=== PATIENT | female | born 1945 | race Caucasian/White ===

== ENCOUNTER → 2016-05-28 | Outpatient (CLI) | payer MEDICARE, OTHER ==
[~2016-05-28] MED LIST: ALPR0.25 GT; CEPH-37 PO; PROP60CA8 PO; TRAM50TA2 PO
[2016-05-28 10:54] LABS: Urine RBC None Seen /hpf (0 - 4)
[2016-05-28 11:14] LABS: Urine Bilirubin Negative (Negative); Urine Blood Negative /uL (Negative); Urine Color Yellow (Yellow); Urine Glucose Normal (Normal); Urine Hyaline Cast FEW /lpf (0 - 2); Urine Ketone Negative (Negative); Urine Nitrite Negative (Negative); Urine Squamous Epithelial Cell FEW /hpf (<5); Urine Urobilinogen Normal (Negative)
[2016-05-28 11:37] LABS: Albumin 3.8 g/dL (3.4-5.0); BUN/Creatinine Ratio 25.3; Bilirubin, Total 0.6 mg/dL (0.2-1.0); Calcium 10.5 mg/dL (8.5-10.1); Potassium 4.9 mmol/L (3.5-5.1); Total Protein 7.6 g/dL (6.4-8.2)
[2016-05-28 11:44] LABS: Basophils # (auto) 0 uL; Basophils % (auto) 0.6 % (0.0-2.0); Eosinophils # (auto) 0.2 uL; Eosinophils % (auto) 2.3 % (0.0-7.0); Hematocrit 44.6 % (36.0-46.0); Hemoglobin 14.6 g/dL (12.2-16.2); Lymphocytes # (auto) 1.8 uL; Lymphocytes % (auto) 21.4 % (10.0-50.0); Mean Corpuscular Hemoglobin 29.4 pg (28.0-32.0); Mean Corpuscular Hgb Conc. 32.9 g/dL (32.0-36.0); Mean Corpuscular Volume 89.4 fL (80.0-100.0); Mean Platelet Volume 8.9 fL (7.4-10.4); Monocytes # (auto) 0.8 uL; Monocytes % (auto) 9.3 % (0.0-12.0); Neutrophils # (auto) 5.7 uL; Neutrophils % (auto) 66.4 % (37.0-80.0); Platelet Count (auto) 294 10^3/uL (140-450); Red Cell Distribution Width 13.2 % (11.6-16.0); White Blood Cell 8.6 10^3/uL (4.4-10.8)
== END | disposition home or self-care (01) ==
LOC: LAB 09:35
PROVIDERS: ATTEND Family Medicine
DX: Z00.00 Encounter for general adult medical examination without abnormal findings (principal)
CPT/HCPCS: 36415; 80053; 80061; 81001; 82306; 82607; 84443; 85025

== ENCOUNTER → 2017-05-10 | Outpatient (CLI) | payer OTHER ==
[~2017-05-10] MED LIST changes: +ALEN70TA55 PO; +ALPR0.254 PO; +ALPR0.5T PO; +ALPR0.5T7 PO; +ARIP1TAB7 PO; +ESCI20TA51 PO; +IBUP400T21 PO
== END | disposition home or self-care (01) ==
LOC: US 09:29
PROVIDERS: ATTEND Family Medicine
DX: N63.0 Unspecified lump in unspecified breast (principal); Z88.5 Allergy status to narcotic agent; F41.9 Anxiety disorder, unspecified
CPT/HCPCS: 76642; 76942; 88341; 88360; 88361

== ENCOUNTER → 2017-05-20 | Outpatient (CLI) | payer MEDICARE, OTHER ==
[2017-05-20 11:24] LABS: Basophils # (auto) 0 uL; Basophils % (auto) 0.7 % (0.0-2.0); Eosinophils # (auto) 0.2 uL; Eosinophils % (auto) 3.7 % (0.0-7.0); Hematocrit 41.1 % (36.0-46.0); Hemoglobin 13.5 g/dL (12.2-16.2); Lymphocytes # (auto) 1.5 uL; Lymphocytes % (auto) 24.3 % (10.0-50.0); Mean Corpuscular Hemoglobin 29.9 pg (28.0-32.0); Mean Corpuscular Hgb Conc. 32.9 g/dL (32.0-36.0); Mean Corpuscular Volume 90.7 fL (80.0-100.0); Monocytes # (auto) 0.7 uL; Monocytes % (auto) 11.5 % (0.0-12.0); Neutrophils # (auto) 3.6 uL; Neutrophils % (auto) 59.8 % (37.0-80.0); Platelet Count (auto) 252 10^3/uL (140-450); Red Blood Cells 4.53 10^6/uL (4.0-5.20); Red Cell Distribution Width 13.2 % (11.8-14.3)
[2017-05-20 11:30] LABS: Urine Bacteria NONE SEEN /hpf (None Seen); Urine Blood Negative /uL (Negative); Urine Mucus FEW (None Seen); Urine Specific Gravity 1.009 (1.001-1.035); Urine WBC 2 /hpf (0 - 5)
[2017-05-20 13:14] LABS: Albumin 3.5 g/dL (3.4-5.0); BUN/Creatinine Ratio 35.1; Bilirubin, Total 0.5 mg/dL (0.2-1.0); Calcium 9.7 mg/dL (8.5-10.1); Potassium 4.7 mmol/L (3.5-5.1); Total Protein 7.1 g/dL (6.4-8.2)
== END | disposition home or self-care (01) ==
LOC: LAB 10:32
PROVIDERS: ATTEND Family Medicine
DX: I10 Essential (primary) hypertension (principal); M81.0 Age-related osteoporosis without current pathological fracture; J44.9 Chronic obstructive pulmonary disease, unspecified; F32.9 Major depressive disorder, single episode, unspecified
CPT/HCPCS: 36415; 80053; 80061; 81001; 82306; 84443; 85025

== ENCOUNTER 2017-06-19 06:04 | Inpatient (IN) | payer OTHER ==
[2017-06-18 16:31] LABS: Basophils # (auto) 0 uL; Basophils % (auto) 0.8 % (0.0-2.0); Eosinophils # (auto) 0.3 uL; Eosinophils % (auto) 5.2 % (0.0-7.0); Hematocrit 41.3 % (36.0-46.0); Hemoglobin 13.8 g/dL (12.2-16.2); Lymphocytes # (auto) 1.7 uL; Lymphocytes % (auto) 28.9 % (10.0-50.0); Mean Corpuscular Hgb Conc. 33.4 g/dL (32.0-36.0); Mean Corpuscular Volume 89.9 fL (80.0-100.0); Monocytes # (auto) 0.8 uL; Monocytes % (auto) 12.7 % (0.0-12.0); Neutrophils # (auto) 3.1 uL; Neutrophils % (auto) 52.4 % (37.0-80.0); Nucleated Red Blood Cells % 0.1 %; Platelet Count (auto) 275 10^3/uL (140-450); Red Cell Distribution Width 13.5 % (11.8-14.3); White Blood Cell 5.9 10^3/uL (4.4-10.8)
[2017-06-18 16:49] LABS: Potassium 4.7 mmol/L (3.5-5.1)
[2017-06-18 16:50] LABS: Albumin 3.7 g/dL (3.4-5.0); BUN/Creatinine Ratio 28.4; Bilirubin, Total 0.4 mg/dL (0.2-1.0); Calcium 10.2 mg/dL (8.5-10.1); Total Protein 7.2 g/dL (6.4-8.2)
[2017-06-18 17:05] LABS: INR 0.98 (0.9-1.15); Partial Thromboplastin Time 32.6 sec (22.64-33.71); Prothrombin Time 10.7 sec (9.37-12.3)
[~2017-06-19] VITALS: Ht 154.9 cm; Wt 58.5 kg
[~2017-06-19 06:04] MED LIST changes: -ALPR0.25 GT; -ALPR0.254 PO; -ALPR0.5T7 PO; -CEPH-37 PO
[2017-06-19] MEDS ORDERED: ceFAZolin 1GM/50ML 50 ML IV ONE (06:41)
[2017-06-19] MEDS ORDERED: SUCCINYLCHOLINE CHLORIDE 20 MG/ML 10ML VIAL IV ONE (07:51)
[2017-06-19] MEDS ORDERED: LIDOCAINE 1% HCL (LOCAL ANESTH.) INJ 20ML MDV ONE (07:51)
[2017-06-19] MEDS ORDERED: MIDAZOLAM HCL 1MG/1ML-2 ML VIAL ONE (07:52)
[2017-06-19] MEDS ORDERED: ROCURONIUM 10MG/ML 10ML VIAL IV ONE ×2 (07:54→07:58)
[2017-06-19] MEDS ORDERED: ETOMIDATE (2MG/ML) 20ML VIAL IV ONE ×2 (07:54→07:58)
[2017-06-19] MEDS ORDERED: LIDOCAINE HCL 2% TOP JELLY 5ML TOP ONE (08:30)
[2017-06-19] MEDS ORDERED: fentaNYL CITRATE 100 MCG/2 ML VL ONE (08:58)
[2017-06-19] MEDS ORDERED: STERILE WATER 10 ML ONE (09:32)
[2017-06-19] MEDS ORDERED: ePHEDrine SULFATE 50 MG/ML AMP ONE (09:32)
[2017-06-19] MEDS ORDERED: GLYCOPYRROLATE 0.2 MG/ML 1ML VIAL ONE (09:45)
[2017-06-19] MEDS ORDERED: ALBUTEROL SULF 2.5 MG/0.5ML(0.5%) NEB SOLN NEB PRN (09:45)
[2017-06-19] MEDS ORDERED: NEOSTIGMINE 1 MG/ML INJ (10mg/10ML VIAL) ONE (09:45)
[2017-06-19] MEDS ORDERED: MORPHINE SULFATE 4 MG/ML SYR/VIAL IV PRN ×3 (09:45→14:15)
[2017-06-19] MEDS ORDERED: ONDANSETRON HCL 4 MG/2 ML VIAL IV ONE (09:45)
[2017-06-19] MEDS ORDERED: NALOXONE HCL 0.4 MG/ML VIAL IV PRN (09:45)
[2017-06-19] MEDS ORDERED: NITROGLYCERIN 0.4 MG SL TAB SL PRN (11:45)
[2017-06-19] MEDS ORDERED: ALPR0.254 PO (12:59)
[2017-06-19] MEDS ORDERED: ALPR0.5T7 PO (12:59)
[2017-06-19 13:47] VITALS: BP 91/47
[2017-06-19] MEDS ORDERED: HYDROcodone-ACET 5/325MG TAB PO PRN (14:15)
[2017-06-19] MEDS ORDERED: ONDANSETRON HCL 4 MG/2 ML VIAL IV PRN (14:15)
[2017-06-19] MEDS ORDERED: ALPRAZolam 0.25 MG TAB PO PRN (14:15)
[2017-06-19 16:57] VITALS: BP 96/56
[2017-06-19 21:41] VITALS: BP 103/55
[2017-06-20 05:31] VITALS: BP 99/62
[2017-06-20 06:51] LABS: Basophils # (auto) 0 uL; Basophils % (auto) 0.5 % (0.0-2.0); Eosinophils # (auto) 0 uL; Eosinophils % (auto) 0.4 % (0.0-7.0); Hematocrit 36.7 % (36.0-46.0); Hemoglobin 12.2 g/dL (12.2-16.2); Lymphocytes # (auto) 1.5 uL; Lymphocytes % (auto) 17.5 % (10.0-50.0); Mean Corpuscular Hemoglobin 29.9 pg (28.0-32.0); Mean Corpuscular Hgb Conc. 33.3 g/dL (32.0-36.0); Mean Corpuscular Volume 89.7 fL (80.0-100.0); Monocytes # (auto) 1.1 uL; Monocytes % (auto) 13.4 % (0.0-12.0); Neutrophils # (auto) 5.7 uL; Neutrophils % (auto) 68.2 % (37.0-80.0); Platelet Count (auto) 264 10^3/uL (140-450); Red Blood Cells 4.09 10^6/uL (4.0-5.20); White Blood Cell 8.3 10^3/uL (4.4-10.8)
[2017-06-20 07:17] LABS: BUN/Creatinine Ratio 28.2; Calcium 9.7 mg/dL (8.5-10.1); Potassium 4.1 mmol/L (3.5-5.1)
[2017-06-20 08:00] VITALS: BP 113/61
[2017-06-20] MEDS ORDERED: CITALOPRAM HYDROBR 20 MG TAB PO SCH (10:00)
[2017-06-20] MEDS ORDERED: GABAPENTIN 300 MG CAP PO SCH (10:00)
[2017-06-20 12:00] VITALS: BP 121/70
== END 2017-06-20 15:00 | disposition home or self-care (01) | DRG 581 ==
LOC: SUR 06:04 → TELE-EAST 06:05
PROVIDERS: ADMIT Surgery; ATTEND Internal Medicine
PROC: 07B50ZZ Excision of Right Axillary Lymphatic, Open Approach (ICD-10-PCS; 2017-06-19)
PROC: 0HTT0ZZ Resection of Right Breast, Open Approach (ICD-10-PCS; principal; 2017-06-19 08:26)
DX: C50.911 Malignant neoplasm of unspecified site of right female breast (principal); J44.9 Chronic obstructive pulmonary disease, unspecified; F20.9 Schizophrenia, unspecified; I50.9 Heart failure, unspecified; I11.0 Hypertensive heart disease with heart failure; F41.9 Anxiety disorder, unspecified; F32.9 Major depressive disorder, single episode, unspecified; M16.11 Unilateral primary osteoarthritis, right hip; M81.0 Age-related osteoporosis without current pathological fracture; I25.2 Old myocardial infarction; Z88.5 Allergy status to narcotic agent
CPT/HCPCS: 36415; 80048; 80053; 85025; 85610; 85730; J0330; J0690; J2001; J2250

== ENCOUNTER → 2017-08-30 | Outpatient (CLI) | payer OTHER ==
[~2017-08-30] MED LIST changes: +ALPR0.254 PO; -ALPR0.5T PO; +ALPR0.5T7 PO
[2017-08-30 11:42] LABS: Basophils # (auto) 0 uL; Basophils % (auto) 0.8 % (0.0-2.0); Eosinophils # (auto) 0.2 uL; Eosinophils % (auto) 4.4 % (0.0-7.0); Hemoglobin 13.8 g/dL (12.2-16.2); Lymphocytes # (auto) 1.9 uL; Lymphocytes % (auto) 33.9 % (10.0-50.0); Mean Corpuscular Hemoglobin 29.1 pg (28.0-32.0); Mean Corpuscular Hgb Conc. 32.2 g/dL (32.0-36.0); Mean Corpuscular Volume 90.4 fL (80.0-100.0); Monocytes # (auto) 0.7 uL; Monocytes % (auto) 12.7 % (0.0-12.0); Neutrophils # (auto) 2.7 uL; Neutrophils % (auto) 48.2 % (37.0-80.0); Nucleated Red Blood Cells % 0.1 %; Platelet Count (auto) 242 10^3/uL (140-450); Red Blood Cells 4.76 10^6/uL (4.0-5.20); Red Cell Distribution Width 13.4 % (11.8-14.3); White Blood Cell 5.5 10^3/uL (4.4-10.8)
[2017-08-30 12:24] LABS: Albumin 3.8 g/dL (3.4-5.0); BUN/Creatinine Ratio 23.6; Bilirubin, Total 0.5 mg/dL (0.2-1.0); Potassium 4.4 mmol/L (3.5-5.1); Total Protein 7.6 g/dL (6.4-8.2)
== END | disposition home or self-care (01) ==
LOC: LAB 11:08
PROVIDERS: ATTEND Internal Medicine
DX: C50.819 Malignant neoplasm of overlapping sites of unspecified female breast (principal); J44.9 Chronic obstructive pulmonary disease, unspecified; I11.0 Hypertensive heart disease with heart failure; I50.9 Heart failure, unspecified
CPT/HCPCS: 36415; 80053; 83615; 85025

== ENCOUNTER → 2017-11-06 | Outpatient (CLI) | payer OTHER ==
[~2017-11-06] MED LIST changes: +PROP60CA34 PO; -PROP60CA8 PO
[2017-11-06 14:44] LABS: Basophils # (auto) 0 uL; Basophils % (auto) 0.5 % (0.0-2.0); Eosinophils # (auto) 0.2 uL; Eosinophils % (auto) 3.2 % (0.0-7.0); Hematocrit 40.5 % (36.0-46.0); Hemoglobin 13.5 g/dL (12.2-16.2); Lymphocytes # (auto) 1.8 uL; Lymphocytes % (auto) 28.8 % (10.0-50.0); Mean Corpuscular Hemoglobin 29.4 pg (28.0-32.0); Mean Corpuscular Hgb Conc. 33.4 g/dL (32.0-36.0); Mean Corpuscular Volume 87.8 fL (80.0-100.0); Monocytes # (auto) 0.7 uL; Monocytes % (auto) 11.5 % (0.0-12.0); Neutrophils # (auto) 3.5 uL; Nucleated Red Blood Cells % 0.1 %; Platelet Count (auto) 233 10^3/uL (140-450); Red Blood Cells 4.61 10^6/uL (4.0-5.20); Red Cell Distribution Width 14.1 % (11.8-14.3); White Blood Cell 6.2 10^3/uL (4.4-10.8)
[2017-11-06 15:33] LABS: Albumin 3.4 g/dL (3.4-5.0); BUN/Creatinine Ratio 25.9; Bilirubin, Total 0.4 mg/dL (0.2-1.0); Calcium 9.7 mg/dL (8.5-10.1); Potassium 3.9 mmol/L (3.5-5.1); Total Protein 6.9 g/dL (6.4-8.2)
== END | disposition home or self-care (01) ==
LOC: LAB 14:29
PROVIDERS: ATTEND Internal Medicine
DX: C50.811 Malignant neoplasm of overlapping sites of right female breast (principal); J44.9 Chronic obstructive pulmonary disease, unspecified; I11.0 Hypertensive heart disease with heart failure; I50.9 Heart failure, unspecified
CPT/HCPCS: 36415; 80053; 83615; 85025

== ENCOUNTER → 2018-02-13 | Outpatient (CLI) | payer OTHER, MEDICARE ==
[~2018-02-13] MED LIST changes: +ALEN1TAB32 PO; -ALEN70TA55 PO
[2018-02-13 15:55] LABS: Basophils # (auto) 0 uL; Basophils % (auto) 0.7 % (0.0-2.0); Eosinophils # (auto) 0.2 uL; Eosinophils % (auto) 4.3 % (0.0-7.0); Hematocrit 44.7 % (36.0-46.0); Hemoglobin 14.6 g/dL (12.2-16.2); Lymphocytes # (auto) 1.9 uL; Lymphocytes % (auto) 35.6 % (10.0-50.0); Mean Corpuscular Hemoglobin 30.1 pg (28.0-32.0); Mean Corpuscular Hgb Conc. 32.7 g/dL (32.0-36.0); Monocytes # (auto) 0.8 uL; Monocytes % (auto) 14.1 % (0.0-12.0); Neutrophils # (auto) 2.4 uL; Neutrophils % (auto) 45.3 % (37.0-80.0); Nucleated Red Blood Cells % 0.1 %; Platelet Count (auto) 257 10^3/uL (140-450); Red Blood Cells 4.86 10^6/uL (4.0-5.20); Red Cell Distribution Width 13.1 % (11.8-14.3); White Blood Cell 5.4 10^3/uL (4.4-10.8)
[2018-02-13 16:49] LABS: Albumin 3.8 g/dL (3.4-5.0); Calcium 10.1 mg/dL (8.5-10.1); Potassium 4.5 mmol/L (3.5-5.1)
[2018-02-13 16:52] LABS: BUN/Creatinine Ratio 29.2; Bilirubin, Total 0.4 mg/dL (0.2-1.0); Total Protein 7.4 g/dL (6.4-8.2)
== END | disposition home or self-care (01) ==
LOC: LAB 15:36
PROVIDERS: ATTEND Internal Medicine
DX: C50.811 Malignant neoplasm of overlapping sites of right female breast (principal)
CPT/HCPCS: 36415; 80053; 83615; 85025

== ENCOUNTER → 2018-07-08 | Outpatient (CLI) | payer MEDICARE, OTHER ==
[2018-07-08 16:08] LABS: Basophils # (auto) 0 uL; Basophils % (auto) 0.4 % (0.0-2.0); Eosinophils # (auto) 0.3 uL; Hematocrit 42.4 % (36.0-46.0); Hemoglobin 13.8 g/dL (12.2-16.2); Lymphocytes # (auto) 1.7 uL; Lymphocytes % (auto) 28.7 % (10.0-50.0); Mean Corpuscular Hemoglobin 29.9 pg (28.0-32.0); Mean Corpuscular Hgb Conc. 32.5 g/dL (32.0-36.0); Mean Corpuscular Volume 91.9 fL (80.0-100.0); Monocytes # (auto) 0.6 uL; Neutrophils # (auto) 3.3 uL; Neutrophils % (auto) 55.9 % (37.0-80.0); Platelet Count (auto) 252 10^3/uL (140-450); Red Blood Cells 4.61 10^6/uL (4.0-5.20); Red Cell Distribution Width 13.2 % (11.8-14.3); White Blood Cell 5.8 10^3/uL (4.4-10.8)
[2018-07-08 16:21] LABS: Albumin 3.8 g/dL (3.4-5.0); BUN/Creatinine Ratio 19.5; Calcium 10.6 mg/dL (8.5-10.1); Potassium 4.2 mmol/L (3.5-5.1)
[2018-07-08 16:24] LABS: Bilirubin, Total 0.3 mg/dL (0.2-1.0); Total Protein 7.2 g/dL (6.4-8.2)
== END | disposition home or self-care (01) ==
LOC: LAB 15:46
PROVIDERS: ATTEND Internal Medicine
DX: C50.811 Malignant neoplasm of overlapping sites of right female breast (principal); J44.9 Chronic obstructive pulmonary disease, unspecified
CPT/HCPCS: 36415; 80053; 83615; 85025

== ENCOUNTER → 2019-01-06 | Outpatient (CLI) | payer MEDICARE, OTHER ==
[2019-01-06 16:22] LABS: Basophils # (auto) 0 uL; Basophils % (auto) 0.7 % (0.0-2.0); Eosinophils # (auto) 0.3 uL; Eosinophils % (auto) 4.6 % (0.0-7.0); Hematocrit 43.6 % (36.0-46.0); Hemoglobin 14.5 g/dL (12.2-16.2); Lymphocytes # (auto) 1.8 uL; Lymphocytes % (auto) 31.3 % (10.0-50.0); Mean Corpuscular Hemoglobin 29.8 pg (28.0-32.0); Mean Corpuscular Hgb Conc. 33.3 g/dL (32.0-36.0); Mean Corpuscular Volume 89.7 fL (80.0-100.0); Monocytes # (auto) 0.7 uL; Monocytes % (auto) 11.4 % (0.0-12.0); Platelet Count (auto) 239 10^3/uL (140-450); Red Blood Cells 4.86 10^6/uL (4.0-5.20); Red Cell Distribution Width 13.3 % (11.8-14.3); White Blood Cell 5.8 10^3/uL (4.4-10.8)
[2019-01-06 16:52] LABS: Albumin 3.9 g/dL (3.4-5.0); BUN/Creatinine Ratio 24.1; Calcium 10.2 mg/dL (8.5-10.1); Potassium 4.4 mmol/L (3.5-5.1)
[2019-01-06 16:54] LABS: Bilirubin, Total 0.5 mg/dL (0.2-1.0); Total Protein 7.6 g/dL (6.4-8.2)
== END | disposition home or self-care (01) ==
LOC: LAB 16:00
PROVIDERS: ATTEND Internal Medicine
DX: C50.811 Malignant neoplasm of overlapping sites of right female breast (principal)
CPT/HCPCS: 36415; 80053; 83615; 85025

== ENCOUNTER → 2019-06-15 | Outpatient (CLI) | payer OTHER ==
[2019-06-15 10:07] LABS: Basophils # (auto) 0 10 ^3/uL (0-0.2); Basophils % (auto) 0.7 % (0.0-2.0); Eosinophils # (auto) 0.3 10 ^3/uL (0-0.8); Eosinophils % (auto) 4.6 % (0.0-7.0); Hematocrit 43.1 % (36.0-46.0); Hemoglobin 14.5 g/dL (12.2-16.2); Lymphocytes # (auto) 1.8 10 ^3/uL (0.4-5.4); Lymphocytes % (auto) 28.1 % (10.0-50.0); Mean Corpuscular Hemoglobin 30.1 pg (28.0-32.0); Mean Corpuscular Hgb Conc. 33.6 g/dL (32.0-36.0); Mean Corpuscular Volume 89.7 fL (80.0-100.0); Monocytes # (auto) 0.7 10 ^3/uL (0-1.3); Monocytes % (auto) 10.8 % (0.0-12.0); Neutrophils # (auto) 3.5 10 ^3/uL (1.6-8.6); Neutrophils % (auto) 55.8 % (37.0-80.0); Nucleated Red Blood Cells % 0.1 %; Platelet Count (auto) 249 10^3/uL (140-450); Red Cell Distribution Width 13.5 % (11.8-14.3); White Blood Cell 6.3 10^3/uL (4.4-10.8)
[2019-06-15 10:29] LABS: Albumin 3.9 g/dL (3.4-5.0)
[2019-06-15 10:33] LABS: BUN/Creatinine Ratio 24.1; Bilirubin, Total 0.6 mg/dL (0.2-1.0); Total Protein 7.8 g/dL (6.4-8.2)
== END | disposition home or self-care (01) ==
LOC: LAB 09:37
PROVIDERS: ATTEND Family Medicine
DX: M48.54XD Collapsed vertebra, not elsewhere classified, thoracic region, subsequent encounter for fracture with routine healing (principal); C50.811 Malignant neoplasm of overlapping sites of right female breast; I10 Essential (primary) hypertension; E78.00 Pure hypercholesterolemia, unspecified; E55.9 Vitamin D deficiency, unspecified; Z17.0 Estrogen receptor positive status [ER+]; X58.XXXD Exposure to other specified factors, subsequent encounter
CPT/HCPCS: 36415; 80053; 80061; 82306; 84443; 85025; 86300

== ENCOUNTER → 2020-01-27 | Outpatient (CLI) | payer MEDICARE, OTHER | END | disposition home or self-care (01) | LOC: US 09:40 | PROVIDERS: ATTEND Family Medicine | DX: E04.2 Nontoxic multinodular goiter (principal) | CPT/HCPCS: 76536 ==

== ENCOUNTER → 2020-01-27 | Outpatient (CLI) | payer OTHER ==
[2020-01-27 10:18] LABS: INR 1.04 (0.9-1.15); Partial Thromboplastin Time 31.7 sec (23.0-31.2)
== END | disposition home or self-care (01) ==
LOC: LAB 09:20
PROVIDERS: ATTEND Family Medicine
DX: Z01.812 Encounter for preprocedural laboratory examination (principal); E04.1 Nontoxic single thyroid nodule; I11.0 Hypertensive heart disease with heart failure; I50.9 Heart failure, unspecified
CPT/HCPCS: 36415; 85610; 85730

== ENCOUNTER → 2020-02-24 | Outpatient (CLI) | payer OTHER ==
[2020-02-24 16:09] LABS: Basophils # (auto) 0 10 ^3/uL (0-0.2); Basophils % (auto) 0.8 % (0.0-2.0); Eosinophils # (auto) 0.3 10 ^3/uL (0-0.8); Eosinophils % (auto) 4.6 % (0.0-7.0); Hematocrit 39.8 % (36.0-46.0); Hemoglobin 13.5 g/dL (12.2-16.2); Lymphocytes # (auto) 1.7 10 ^3/uL (0.4-5.4); Lymphocytes % (auto) 30.7 % (10.0-50.0); Mean Corpuscular Hemoglobin 30.4 pg (28.0-32.0); Mean Corpuscular Hgb Conc. 33.8 g/dL (32.0-36.0); Monocytes # (auto) 0.8 10 ^3/uL (0-1.3); Monocytes % (auto) 14.5 % (0.0-12.0); Neutrophils # (auto) 2.8 10 ^3/uL (1.6-8.6); Neutrophils % (auto) 49.4 % (37.0-80.0); Nucleated Red Blood Cells % 0.1 %; Platelet Count (auto) 260 10^3/uL (140-450); Red Blood Cells 4.42 10^6/uL (4.0-5.20); Red Cell Distribution Width 13.2 % (11.8-14.3); White Blood Cell 5.6 10^3/uL (4.4-10.8)
[2020-02-24 16:29] LABS: Albumin 3.4 g/dL (3.4-5.0); Calcium 10.6 mg/dL (8.5-10.1); Potassium 4.8 mmol/L (3.5-5.1)
[2020-02-24 16:32] LABS: BUN/Creatinine Ratio 38.1; Bilirubin, Total 0.3 mg/dL (0.2-1.0); Total Protein 7.2 g/dL (6.4-8.2)
[2020-02-24 17:22] LABS: Urine Bacteria NONE SEEN /hpf (None Seen); Urine Blood Negative /uL (Negative); Urine Specific Gravity 1.014 (1.001-1.035); Urine WBC 3 /hpf (0 - 5)
== END | disposition home or self-care (01) ==
LOC: LAB 15:53
PROVIDERS: ATTEND Family Medicine
DX: I10 Essential (primary) hypertension (principal); E03.9 Hypothyroidism, unspecified; E04.1 Nontoxic single thyroid nodule; F33.9 Major depressive disorder, recurrent, unspecified; M48.54XD Collapsed vertebra, not elsewhere classified, thoracic region, subsequent encounter for fracture with routine healing
CPT/HCPCS: 36415; 80053; 81001; 82607; 84443; 85025

== ENCOUNTER 2020-09-12 12:54 | Inpatient (IN) | payer MEDICARE, OTHER ==
[~2020-09-12] VITALS: Ht 154.9 cm; Wt 50.2 kg
[~2020-09-12 12:54] MED LIST changes: -ALEN1TAB32 PO; +ALEN70TA74 PO; +ESCI-34 PO; -ESCI20TA51 PO; -IBUP400T21 PO; +IBUP400T22 PO
[2020-09-12] MEDS ORDERED: FLUT250M2 IN (14:01)
[2020-09-12] MEDS ORDERED: ALBUPOW25 XX (14:01)
[2020-09-12 14:03] LABS: Basophils # (auto) 0.1 10 ^3/uL (0-0.2); Basophils % (auto) 0.8 % (0.0-2.0); Eosinophils # (auto) 0.2 10 ^3/uL (0-0.8); Eosinophils % (auto) 2.7 % (0.0-7.0); Hematocrit 46.8 % (36.0-46.0); Hemoglobin 16.1 g/dL (12.2-16.2); Lymphocytes # (auto) 2.5 10 ^3/uL (0.4-5.4); Lymphocytes % (auto) 32.8 % (10.0-50.0); Mean Corpuscular Hemoglobin 30.6 pg (28.0-32.0); Mean Corpuscular Hgb Conc. 34.4 g/dL (32.0-36.0); Mean Corpuscular Volume 89.1 fL (80.0-100.0); Monocytes # (auto) 0.7 10 ^3/uL (0-1.3); Monocytes % (auto) 8.7 % (0.0-12.0); Neutrophils # (auto) 4.2 10 ^3/uL (1.6-8.6); Nucleated Red Blood Cells % 0.1 %; Platelet Count (auto) 319 10^3/uL (140-450); Red Blood Cells 5.25 10^6/uL (4.0-5.20); Red Cell Distribution Width 13.6 % (11.8-14.3); White Blood Cell 7.6 10^3/uL (4.4-10.8)
[2020-09-12 14:07] LABS: Urine Bacteria FEW /hpf (None Seen); Urine Blood Negative /uL (Negative); Urine Specific Gravity 1.007 (1.001-1.035); Urine WBC 21 /hpf (0 - 5); Urine WBC Clumps PRESENT /hpf (None Seen)
[2020-09-12 14:12] LABS: Chloride 102 mmol/L (98-107); Sodium 134 mmol/L (136-145)
[2020-09-12] MEDS ORDERED: cloNIDine HCL 0.1 MG TAB PO ONE (14:15)
[2020-09-12 14:17] LABS: INR 1.03 (0.9-1.15); Partial Thromboplastin Time 32.2 sec (23.0-31.2)
[2020-09-12 14:22] LABS: Alanine Aminotransferase 19 U/L (13-56); Alkaline Phosphatase 76 U/L (45-117); Anion Gap 5 (5-15); Aspartate Aminotransferase 20 U/L (15-37); BUN/Creatinine Ratio 30.4; Bilirubin, Total 0.6 mg/dL (0.2-1.0); Blood Urea Nitrogen 21 mg/dL (7-18); Calcium 11.6 mg/dL (8.5-10.1); Carbon Dioxide 27 mmol/L (21-32); GFR African American 107 mL/min; GFR Non-African American 88 mL/min; Glucose 82 mg/dL (74-106); Total Protein 8.3 g/dL (6.4-8.2)
[2020-09-12] MEDS ORDERED: cefTRIAXone 1GM/50ML D5W 50 ML IV ONE (15:00)
[2020-09-12] MEDS ORDERED: NITROGLYCERIN 0.4 MG SL TAB SL PRN (16:30)
[2020-09-12] MEDS ORDERED: MORPHINE SULF INJ 2 MG/ML SYRINGE 1ML IV PRN (16:30)
[2020-09-12 22:00] VITALS: BP 91/57
[2020-09-13 05:00] VITALS: BP 115/55
[2020-09-13] MEDS ORDERED: TRAM50TA2 PO (05:38)
[2020-09-13] MEDS: ALPRAZolam 0.5 MG TAB PO SCH (06:31)
[2020-09-13 09:00] VITALS: BP 106/60
[2020-09-13] MEDS: cefTRIAXone 1GM/50ML D5W 50 ML IV SCH (09:02)
[2020-09-13] MEDS: CITALOPRAM HYDROBR 20 MG TAB PO SCH (09:03)
[2020-09-13 13:00] VITALS: BP 100/66
[2020-09-13] MEDS ORDERED: IPRATROPIUM BROM 0.5 MG/2.5ML INH SOL NEB PRN (15:45)
[2020-09-13] MEDS ORDERED: ALBUTEROL SULF 2.5 MG/0.5ML(0.5%) NEB SOLN NEB PRN (15:45)
[2020-09-13 17:00] VITALS: BP 107/68
[2020-09-13 20:00] VITALS: BP 118/55
[2020-09-13 22:00] VITALS: BP 118/55
[2020-09-14 01:58] VITALS: BP 118/55
[2020-09-14 05:00] VITALS: BP 149/82
[2020-09-14 08:27] LABS: Calcium 10.6 mg/dL (8.5-10.1); Magnesium 2.4 mg/dL (1.6-2.6); Potassium 4.1 mmol/L (3.5-5.1)
[2020-09-14 08:29] LABS: BUN/Creatinine Ratio 28.4
[2020-09-14] MEDS: cefTRIAXone 1GM/50ML D5W 50 ML IV SCH (08:34)
[2020-09-14 09:00] VITALS: BP 156/91
[2020-09-14] MEDS ORDERED: HYDROmorphone HCL 2 MG/ML VL IV PRN (10:15)
[2020-09-14] MEDS ORDERED: METOCLOPRAMIDE HCL 5MG/ml INJ 2ml VIAL IV PRN (10:15)
[2020-09-14] MEDS ORDERED: GLYCOPYRROLATE 0.2 MG/ML 1ML VIAL IV ONE (10:24)
[2020-09-14] MEDS ORDERED: MIDAZOLAM HCL 1MG/1ML-2 ML VIAL ONE (10:25)
[2020-09-14] MEDS ORDERED: PROPOFOL 10 MG/ML 20 ML IV ONE (10:25)
[2020-09-14] MEDS ORDERED: ONDANSETRON HCL 4 MG/2 ML VIAL ONE (10:25)
[2020-09-14] MEDS ORDERED: SODIUM CHLORIDE LOCK 10 ML ONE (10:25)
[2020-09-14] MEDS ORDERED: fentaNYL CITRATE 100 MCG/2 ML VL ONE (10:25)
[2020-09-14 13:00] VITALS: BP 135/78
[2020-09-14] MEDS: CITALOPRAM HYDROBR 20 MG TAB PO SCH (15:36)
[2020-09-14 17:00] VITALS: BP 131/87
[2020-09-14 22:00] VITALS: BP 134/67
[2020-09-15 05:00] VITALS: BP 143/64
[2020-09-15] MEDS: ALPRAZolam 0.5 MG TAB PO SCH (07:24)
[2020-09-15 08:34] VITALS: BP 150/75
[2020-09-15] MEDS: CITALOPRAM HYDROBR 20 MG TAB PO SCH (10:19)
[2020-09-15] MEDS: cefTRIAXone 1GM/50ML D5W 50 ML IV SCH (10:20)
[2020-09-15 13:10] VITALS: BP 123/75
[2020-09-16] MEDS ORDERED: ALPRAZolam 0.5 MG TAB PO SCH (07:00)
== END 2020-09-15 16:50 | disposition home health service (06) | DRG 392 ==
LOC: ER 12:54 → TELE 16:30 → TELE-WESTW 22:40
PROVIDERS: ADMIT Nurse Practitioner Acute Care; ATTEND Internal Medicine
PROC: 0D758ZZ Dilation of Esophagus, Via Natural or Artificial Opening Endoscopic (ICD-10-PCS; 2020-09-14)
PROC: 0DJ08ZZ Inspection of Upper Intestinal Tract, Via Natural or Artificial Opening Endoscopic (ICD-10-PCS; principal; 2020-09-14 10:34)
DX: K22.2 Esophageal obstruction (principal); I31.9 Disease of pericardium, unspecified; R00.1 Bradycardia, unspecified; Z20.822 Contact with and (suspected) exposure to COVID-19; F41.9 Anxiety disorder, unspecified; G25.0 Essential tremor; M19.90 Unspecified osteoarthritis, unspecified site; T44.7X5A Adverse effect of beta-adrenoreceptor antagonists, initial encounter; I10 Essential (primary) hypertension; R94.31 Abnormal electrocardiogram [ECG] [EKG]; Z79.899 Other long term (current) drug therapy; Z80.3 Family history of malignant neoplasm of breast; Z82.3 Family history of stroke; Z79.51 Long term (current) use of inhaled steroids; Z82.49 Family history of ischemic heart disease and other diseases of the circulatory system; Z85.3 Personal history of malignant neoplasm of breast; Z87.891 Personal history of nicotine dependence; Z90.11 Acquired absence of right breast and nipple; Z79.891 Long term (current) use of opiate analgesic; Z79.01 Long term (current) use of anticoagulants; Z88.5 Allergy status to narcotic agent
CPT/HCPCS: 36415; 71045; 80048; 80053; 81001; 83735; 84484; 85025; 85610; 85730; 86141; 87086; 87426; 93005; 93306; 94640; 96365; 96366; G0378; J0696; J2250; J2405; J2704

== ENCOUNTER 2020-10-06 10:35 | Inpatient (IN) | payer OTHER ==
[~2020-10-06] VITALS: Ht 152.4 cm; Wt 52.6 kg
[~2020-10-06 10:35] MED LIST changes: -ALEN70TA74 PO; -ALPR0.254 PO; +FLUT250M2 IN; -IBUP400T22 PO; -PROP60CA34 PO
[2020-10-06] MEDS ORDERED: SODIUM CHLORIDE 0.9% 1,000 ML IV ONE (11:00)
[2020-10-06 12:16] LABS: Basophils # (auto) 0.1 10 ^3/uL (0-0.2); Basophils % (auto) 0.5 % (0.0-2.0); Eosinophils # (auto) 0.1 10 ^3/uL (0-0.8); Eosinophils % (auto) 1.1 % (0.0-7.0); Hemoglobin 14.7 g/dL (12.2-16.2); Lymphocytes # (auto) 1.8 10 ^3/uL (0.4-5.4); Lymphocytes % (auto) 17.5 % (10.0-50.0); Mean Corpuscular Hemoglobin 29.7 pg (28.0-32.0); Mean Corpuscular Hgb Conc. 33.4 g/dL (32.0-36.0); Mean Corpuscular Volume 88.7 fL (80.0-100.0); Monocytes # (auto) 1.3 10 ^3/uL (0-1.3); Monocytes % (auto) 12.5 % (0.0-12.0); Neutrophils # (auto) 7.2 10 ^3/uL (1.6-8.6); Neutrophils % (auto) 68.4 % (37.0-80.0); Platelet Count (auto) 392 10^3/uL (140-450); Red Blood Cells 4.96 10^6/uL (4.0-5.20); Red Cell Distribution Width 13.4 % (11.8-14.3); White Blood Cell 10.5 10^3/uL (4.4-10.8)
[2020-10-06 12:26] LABS: Chloride 100 mmol/L (98-107); Potassium 3.9 mmol/L (3.5-5.1); Sodium 135 mmol/L (136-145)
[2020-10-06 12:34] LABS: Alanine Aminotransferase 22 U/L (13-56); Albumin 3.2 g/dL (3.4-5.0); Alkaline Phosphatase 86 U/L (45-117); Anion Gap 8 (5-15); Aspartate Aminotransferase 19 U/L (15-37); BUN/Creatinine Ratio 16.1; Bilirubin, Total 0.4 mg/dL (0.2-1.0); Blood Urea Nitrogen 14 mg/dL (7-18); Carbon Dioxide 27 mmol/L (21-32); GFR African American 82 mL/min; GFR Non-African American 68 mL/min; Glucose 97 mg/dL (74-106); Total Protein 7.5 g/dL (6.4-8.2)
[2020-10-06] MEDS ORDERED: ARIP1TAB61 PO (12:53)
[2020-10-06] MEDS ORDERED: FLUT250M2 (12:53)
[2020-10-06] MEDS ORDERED: ARIP15TA6 PO (12:53)
[2020-10-06] MEDS ORDERED: ALBU108A5 INH (12:53)
[2020-10-06] MEDS ORDERED: GABA300C10 PO (12:53)
[2020-10-06] MEDS ORDERED: ALPR0.5T8 PO (12:53)
[2020-10-06] MEDS ORDERED: cefTRIAXone 1GM/50ML D5W 50 ML IV ONE (13:15)
[2020-10-06] MEDS ORDERED: NITROGLYCERIN 0.4 MG SL TAB SL PRN (13:15)
[2020-10-06] MEDS ORDERED: metroNIDAZOLE 500MG/100ML 100 ML IV ONE (13:15)
[2020-10-06] MEDS ORDERED: MORPHINE SULF INJ 2 MG/ML SYRINGE 1ML IV PRN (13:15)
[2020-10-06] MEDS ORDERED: traMADol HCL 50 MG TAB PO PRN (14:15)
[2020-10-06] MEDS ORDERED: ACETAMINOPHEN 500 MG TAB PO PRN (14:15)
[2020-10-06] MEDS ORDERED: LORazepam 0.5 MG TAB PO PRN (14:15)
[2020-10-06] MEDS ORDERED: ONDANSETRON HCL 4 MG/2 ML VIAL IV PRN (14:15)
[2020-10-06] MEDS: SODIUM CHLORIDE 0.9% 1,000 ML IV SCH (14:44)
[2020-10-06] MEDS: FAMOTIDINE (10MG/ML) 2ML VL IV SCH (15:00)
[2020-10-06] MEDS: VANCOMYCIN HCL 125MG/5ML ORAL SOL PO SCH ×3 (15:00→22:30)
[2020-10-06 16:30] VITALS: BP 122/75
[2020-10-06 22:00] VITALS: BP 121/64
[2020-10-06] MEDS: metroNIDAZOLE 500MG/100ML 100 ML IV SCH (22:20)
[2020-10-07] MEDS: SODIUM CHLORIDE 0.9% 1,000 ML IV SCH ×3 (00:15→22:32)
[2020-10-07] MEDS: FAMOTIDINE (10MG/ML) 2ML VL IV SCH ×2 (01:26→14:47)
[2020-10-07 01:40] LABS: Urine Bacteria FEW /hpf (None Seen); Urine Blood Negative /uL (Negative); Urine Specific Gravity 1.012 (1.001-1.035); Urine WBC 79 /hpf (0 - 5)
[2020-10-07 05:00] VITALS: BP 146/89
[2020-10-07] MEDS: metroNIDAZOLE 500MG/100ML 100 ML IV SCH ×3 (06:22→22:32)
[2020-10-07] MEDS: VANCOMYCIN HCL 125MG/5ML ORAL SOL PO SCH ×4 (06:22→22:33)
[2020-10-07 08:00] VITALS: BP 129/74
[2020-10-07 09:00] VITALS: BP 129/74
[2020-10-07] MEDS ORDERED: cefTRIAXone 1GM/50ML D5W 50 ML IV SCH (09:00)
[2020-10-07] MEDS: ENOXAPARIN SOD 40 MG/0.4 ML SYRINGE SC SCH (09:50)
[2020-10-07] MEDS ORDERED: cefTRIAXone 1GM/50ML D5W 50 ML IV ONE (10:30)
[2020-10-07] MEDS ORDERED: FLUoxetine HCL 20 MG CAP PO ONE (10:45)
[2020-10-07] MEDS ORDERED: ALBUTEROL SULF 2.5 MG/0.5ML(0.5%) NEB SOLN NEB PRN (10:45)
[2020-10-07] MEDS ORDERED: ALPRAZolam 0.5 MG TAB PO PRN (10:45)
[2020-10-07 13:00] VITALS: BP 132/72
[2020-10-07] MEDS: GABAPENTIN 300 MG CAP PO SCH ×2 (14:47→22:33)
[2020-10-07 17:10] VITALS: BP 144/96
[2020-10-07 22:00] VITALS: BP 116/69
[2020-10-08] MEDS: FAMOTIDINE (10MG/ML) 2ML VL IV SCH ×3 (01:45→21:17)
[2020-10-08 05:00] VITALS: BP 137/75
[2020-10-08] MEDS: metroNIDAZOLE 500MG/100ML 100 ML IV SCH ×3 (06:37→21:17)
[2020-10-08] MEDS: SODIUM CHLORIDE 0.9% 1,000 ML IV SCH ×3 (06:38→21:17)
[2020-10-08] MEDS: VANCOMYCIN HCL 125MG/5ML ORAL SOL PO SCH ×4 (06:38→21:17)
[2020-10-08] MEDS: GABAPENTIN 300 MG CAP PO SCH ×3 (06:38→21:17)
[2020-10-08 08:00] VITALS: BP 139/65
[2020-10-08 08:21] LABS: Basophils # (auto) 0 10 ^3/uL (0-0.2); Basophils % (auto) 0.5 % (0.0-2.0); Eosinophils # (auto) 0.2 10 ^3/uL (0-0.8); Eosinophils % (auto) 3.1 % (0.0-7.0); Hematocrit 38.6 % (36.0-46.0); Hemoglobin 13.1 g/dL (12.2-16.2); Lymphocytes # (auto) 1.1 10 ^3/uL (0.4-5.4); Lymphocytes % (auto) 17.3 % (10.0-50.0); Mean Corpuscular Hemoglobin 30.2 pg (28.0-32.0); Mean Corpuscular Hgb Conc. 33.9 g/dL (32.0-36.0); Monocytes # (auto) 0.6 10 ^3/uL (0-1.3); Monocytes % (auto) 9.4 % (0.0-12.0); Neutrophils # (auto) 4.5 10 ^3/uL (1.6-8.6); Neutrophils % (auto) 69.7 % (37.0-80.0); Platelet Count (auto) 353 10^3/uL (140-450); Red Blood Cells 4.34 10^6/uL (4.0-5.20); Red Cell Distribution Width 13.5 % (11.8-14.3); White Blood Cell 6.4 10^3/uL (4.4-10.8)
[2020-10-08 08:40] LABS: Albumin 2.5 g/dL (3.4-5.0); Calcium 9.2 mg/dL (8.5-10.1)
[2020-10-08 08:48] LABS: BUN/Creatinine Ratio 24.1; Bilirubin, Total 0.2 mg/dL (0.2-1.0); CRP High Sensitivity 5.56 mg/dL (< 0.3)
[2020-10-08] MEDS: FLUoxetine HCL 20 MG CAP PO SCH (09:18)
[2020-10-08] MEDS: cefTRIAXone 1GM/50ML D5W 50 ML IV SCH (09:18)
[2020-10-08] MEDS: ENOXAPARIN SOD 40 MG/0.4 ML SYRINGE SC SCH (09:19)
[2020-10-08 12:00] VITALS: BP 130/85
[2020-10-08 16:00] VITALS: BP 137/74
[2020-10-08 22:00] VITALS: BP 120/76
[2020-10-09 05:00] VITALS: BP 125/85
[2020-10-09] MEDS: metroNIDAZOLE 500MG/100ML 100 ML IV SCH ×3 (05:24→21:46)
[2020-10-09] MEDS: GABAPENTIN 300 MG CAP PO SCH ×3 (05:24→21:46)
[2020-10-09] MEDS: VANCOMYCIN HCL 125MG/5ML ORAL SOL PO SCH ×4 (05:24→21:46)
[2020-10-09 07:07] LABS: Basophils # (auto) 0 10 ^3/uL (0-0.2); Basophils % (auto) 0.5 % (0.0-2.0); Eosinophils # (auto) 0.3 10 ^3/uL (0-0.8); Eosinophils % (auto) 4.4 % (0.0-7.0); Hematocrit 36.4 % (36.0-46.0); Hemoglobin 12.2 g/dL (12.2-16.2); Lymphocytes # (auto) 1.7 10 ^3/uL (0.4-5.4); Lymphocytes % (auto) 26.7 % (10.0-50.0); Mean Corpuscular Hemoglobin 29.6 pg (28.0-32.0); Mean Corpuscular Hgb Conc. 33.4 g/dL (32.0-36.0); Mean Corpuscular Volume 88.4 fL (80.0-100.0); Monocytes # (auto) 0.8 10 ^3/uL (0-1.3); Monocytes % (auto) 13.3 % (0.0-12.0); Neutrophils # (auto) 3.5 10 ^3/uL (1.6-8.6); Neutrophils % (auto) 55.1 % (37.0-80.0); Nucleated Red Blood Cells % 0.1 %; Platelet Count (auto) 371 10^3/uL (140-450); Red Blood Cells 4.12 10^6/uL (4.0-5.20); Red Cell Distribution Width 13.5 % (11.8-14.3); White Blood Cell 6.4 10^3/uL (4.4-10.8)
[2020-10-09 07:16] LABS: BUN/Creatinine Ratio 24.5; Calcium 9.5 mg/dL (8.5-10.1); Potassium 4.5 mmol/L (3.5-5.1)
[2020-10-09 07:42] VITALS: BP 150/73
[2020-10-09 08:00] VITALS: BP 150/73
[2020-10-09] MEDS: ENOXAPARIN SOD 40 MG/0.4 ML SYRINGE SC SCH (10:54)
[2020-10-09] MEDS: cefTRIAXone 1GM/50ML D5W 50 ML IV SCH (10:54)
[2020-10-09] MEDS: FLUoxetine HCL 20 MG CAP PO SCH (10:54)
[2020-10-09 12:00] VITALS: BP 132/64
[2020-10-09] MEDS ORDERED: IOHEXOL 350 MG/ML 100ML IJ ONE (14:01)
[2020-10-09] MEDS: FAMOTIDINE (10MG/ML) 2ML VL IV SCH (14:40)
[2020-10-09] MEDS: SODIUM CHLORIDE 0.9% 1,000 ML IV SCH (14:41)
[2020-10-09 16:00] VITALS: BP 136/68
[2020-10-09 22:00] VITALS: BP 148/83
[2020-10-10] VITALS (7 sets, daily range): BP systolic 137–156; BP diastolic 76–89
[2020-10-10] MEDS: FAMOTIDINE (10MG/ML) 2ML VL IV SCH ×2 (02:00→14:57)
[2020-10-10 05:29] LABS: Basophils # (auto) 0 10 ^3/uL (0-0.2); Basophils % (auto) 0.6 % (0.0-2.0); Eosinophils # (auto) 0.2 10 ^3/uL (0-0.8); Eosinophils % (auto) 3.3 % (0.0-7.0); Hematocrit 38.3 % (36.0-46.0); Hemoglobin 12.8 g/dL (12.2-16.2); Lymphocytes # (auto) 1.5 10 ^3/uL (0.4-5.4); Lymphocytes % (auto) 20.4 % (10.0-50.0); Mean Corpuscular Hemoglobin 29.8 pg (28.0-32.0); Mean Corpuscular Hgb Conc. 33.5 g/dL (32.0-36.0); Mean Corpuscular Volume 89.1 fL (80.0-100.0); Monocytes # (auto) 0.9 10 ^3/uL (0-1.3); Monocytes % (auto) 11.6 % (0.0-12.0); Neutrophils # (auto) 4.7 10 ^3/uL (1.6-8.6); Neutrophils % (auto) 64.1 % (37.0-80.0); Platelet Count (auto) 372 10^3/uL (140-450); Red Cell Distribution Width 13.4 % (11.8-14.3); White Blood Cell 7.3 10^3/uL (4.4-10.8)
[2020-10-10 05:45] LABS: BUN/Creatinine Ratio 22.4; Calcium 9.5 mg/dL (8.5-10.1)
[2020-10-10] MEDS: SODIUM CHLORIDE 0.9% 1,000 ML IV SCH ×2 (05:49→22:03)
[2020-10-10] MEDS: GABAPENTIN 300 MG CAP PO SCH ×3 (05:59→21:04)
[2020-10-10] MEDS: VANCOMYCIN HCL 125MG/5ML ORAL SOL PO SCH ×4 (05:59→21:04)
[2020-10-10] MEDS: metroNIDAZOLE 500MG/100ML 100 ML IV SCH ×3 (05:59→21:03)
[2020-10-10] MEDS: cefTRIAXone 1GM/50ML D5W 50 ML IV SCH (09:58)
[2020-10-10] MEDS: FLUoxetine HCL 20 MG CAP PO SCH (09:58)
[2020-10-10] MEDS: ENOXAPARIN SOD 40 MG/0.4 ML SYRINGE SC SCH (09:59)
[2020-10-11] MEDS: FAMOTIDINE (10MG/ML) 2ML VL IV SCH ×2 (02:15→14:15)
[2020-10-11 05:00] VITALS: BP 141/77
[2020-10-11 05:06] LABS: Basophils # (auto) 0.1 10 ^3/uL (0-0.2); Basophils % (auto) 0.7 % (0.0-2.0); Eosinophils # (auto) 0.2 10 ^3/uL (0-0.8); Eosinophils % (auto) 2.5 % (0.0-7.0); Hemoglobin 12.6 g/dL (12.2-16.2); Lymphocytes # (auto) 1.5 10 ^3/uL (0.4-5.4); Lymphocytes % (auto) 20.8 % (10.0-50.0); Mean Corpuscular Hemoglobin 30.2 pg (28.0-32.0); Mean Corpuscular Hgb Conc. 34.1 g/dL (32.0-36.0); Mean Corpuscular Volume 88.6 fL (80.0-100.0); Monocytes # (auto) 0.8 10 ^3/uL (0-1.3); Monocytes % (auto) 11.4 % (0.0-12.0); Neutrophils # (auto) 4.8 10 ^3/uL (1.6-8.6); Neutrophils % (auto) 64.6 % (37.0-80.0); Nucleated Red Blood Cells % 0.1 %; Platelet Count (auto) 383 10^3/uL (140-450); Red Blood Cells 4.18 10^6/uL (4.0-5.20); Red Cell Distribution Width 13.6 % (11.8-14.3); White Blood Cell 7.4 10^3/uL (4.4-10.8)
[2020-10-11 05:31] LABS: Calcium 9.2 mg/dL (8.5-10.1); Potassium 4.2 mmol/L (3.5-5.1)
[2020-10-11 05:34] LABS: BUN/Creatinine Ratio 27.5
[2020-10-11] MEDS: metroNIDAZOLE 500MG/100ML 100 ML IV SCH ×3 (06:21→21:33)
[2020-10-11] MEDS: GABAPENTIN 300 MG CAP PO SCH ×3 (06:22→21:34)
[2020-10-11] MEDS: VANCOMYCIN HCL 125MG/5ML ORAL SOL PO SCH ×4 (06:22→21:34)
[2020-10-11 08:00] VITALS: BP 157/88
[2020-10-11 09:00] VITALS: BP 157/88
[2020-10-11] MEDS: cefTRIAXone 1GM/50ML D5W 50 ML IV SCH (09:09)
[2020-10-11] MEDS: SODIUM CHLORIDE 0.9% 1,000 ML IV SCH (09:09)
[2020-10-11] MEDS: FLUoxetine HCL 20 MG CAP PO SCH (10:34)
[2020-10-11] MEDS: ENOXAPARIN SOD 40 MG/0.4 ML SYRINGE SC SCH (10:35)
[2020-10-11] MEDS: HYDROcodone-ACET 5/325MG TAB PO PRN (11:01)
[2020-10-11 13:00] VITALS: BP 143/70
[2020-10-11] MEDS ORDERED: LABETALOL HCL 5 MG/ML 4ML SYRINGE IV PRN (13:45)
[2020-10-11 16:44] VITALS: BP 150/80
[2020-10-11 22:00] VITALS: BP 154/78
[2020-10-12] MEDS: FAMOTIDINE (10MG/ML) 2ML VL IV SCH (02:18)
[2020-10-12 05:00] VITALS: BP 153/80
[2020-10-12] MEDS: VANCOMYCIN HCL 125MG/5ML ORAL SOL PO SCH ×4 (05:30→21:09)
[2020-10-12] MEDS: GABAPENTIN 300 MG CAP PO SCH ×3 (05:30→21:09)
[2020-10-12] MEDS: metroNIDAZOLE 500MG/100ML 100 ML IV SCH ×3 (05:30→21:09)
[2020-10-12 09:00] VITALS: BP 140/76
[2020-10-12] MEDS ORDERED: PROPRANOLOL HCL 20 MG TAB PO ONE (10:15)
[2020-10-12] MEDS: ENOXAPARIN SOD 40 MG/0.4 ML SYRINGE SC SCH (10:29)
[2020-10-12] MEDS: FLUoxetine HCL 20 MG CAP PO SCH (10:29)
[2020-10-12] MEDS: HYDROcodone-ACET 5/325MG TAB PO PRN (10:30)
[2020-10-12 13:00] VITALS: BP 139/77
[2020-10-12 16:56] VITALS: BP 148/70
[2020-10-12 21:33] VITALS: BP 135/79
[2020-10-13 05:00] VITALS: BP 161/73
[2020-10-13 05:47] VITALS: BP 161/73
[2020-10-13] MEDS: metroNIDAZOLE 500MG/100ML 100 ML IV SCH ×2 (06:02→13:42)
[2020-10-13] MEDS: VANCOMYCIN HCL 125MG/5ML ORAL SOL PO SCH ×2 (06:03→12:20)
[2020-10-13] MEDS: GABAPENTIN 300 MG CAP PO SCH ×2 (06:03→13:48)
[2020-10-13 08:12] VITALS: BP 161/73
[2020-10-13 09:00] VITALS: BP 142/87
[2020-10-13] MEDS: ENOXAPARIN SOD 40 MG/0.4 ML SYRINGE SC SCH (09:43)
[2020-10-13] MEDS: FLUoxetine HCL 20 MG CAP PO SCH (09:43)
[2020-10-13] MEDS ORDERED: PROPRANOLOL HCL 20 MG TAB PO SCH (10:00)
[2020-10-13] MEDS ORDERED: PROP20TA73 PO (10:00)
[2020-10-13] MEDS ORDERED: ATOR10TA52 PO (10:02)
[2020-10-13] MEDS ORDERED: ASPI-231 PO (10:02)
[2020-10-13] MEDS ORDERED: ASPirin 81 mg TAB PO ONE (10:15)
[2020-10-13 13:00] VITALS: BP 137/86
== END 2020-10-13 14:30 | disposition home health service (06) | DRG 371 ==
LOC: ER 10:35 → TELE 13:15 → TELE-WESTW 15:45
PROVIDERS: ADMIT Internal Medicine; ATTEND Internal Medicine
DX: A04.72 Enterocolitis due to Clostridium difficile, not specified as recurrent (principal); N17.0 Acute kidney failure with tubular necrosis; E44.0 Moderate protein-calorie malnutrition; E87.1 Hypo-osmolality and hyponatremia; G45.9 Transient cerebral ischemic attack, unspecified; N39.0 Urinary tract infection, site not specified; Z20.822 Contact with and (suspected) exposure to COVID-19; F41.9 Anxiety disorder, unspecified; J45.909 Unspecified asthma, uncomplicated; I70.8 Atherosclerosis of other arteries; F32.9 Major depressive disorder, single episode, unspecified; N18.9 Chronic kidney disease, unspecified; I12.9 Hypertensive chronic kidney disease with stage 1 through stage 4 chronic kidney disease, or unspecified chronic kidney disease; G25.0 Essential tremor; E83.52 Hypercalcemia; K57.30 Diverticulosis of large intestine without perforation or abscess without bleeding; M16.11 Unilateral primary osteoarthritis, right hip; Z88.5 Allergy status to narcotic agent; Z82.3 Family history of stroke; Z80.3 Family history of malignant neoplasm of breast; Z82.49 Family history of ischemic heart disease and other diseases of the circulatory system; Z79.899 Other long term (current) drug therapy; Z68.22 Body mass index [BMI] 22.0-22.9, adult
CPT/HCPCS: 36415; 70450; 70496; 70498; 70551; 71046; 74176; 80048; 80053; 81001; 82378; 83605; 84443; 84484; 85025; 85049; 85652; 86141; 87040; 87081; 87086; 87426; 87493; 93005; 93306; 93886; 96361; 96365; 96368; 97163; G0378; J0696; J3490

== ENCOUNTER 2020-11-02 06:28 | Inpatient (IN) | payer OTHER ==
[~2020-11-02] VITALS: Ht 152.4 cm; Wt 48.0 kg
[~2020-11-02 06:28] MED LIST changes: +ALBU108A5 INH; +ARIP15TA6 PO; -ARIP1TAB7 PO; +ASPI-231 PO; +ATOR10TA52 PO; +FLUT250M2; +GABA300C10 PO; +PROP20TA73 PO
[2020-11-02] MEDS ORDERED: ONDANSETRON HCL 4 MG/2 ML VIAL IV ONE (07:45)
[2020-11-02] MEDS ORDERED: SODIUM CHLORIDE 0.9% 1,000 ML IV ONE (07:45)
[2020-11-02] MEDS ORDERED: MORPHINE SULFATE 4 MG/ML SYR/VIAL IV ONE (07:45)
[2020-11-02 07:54] LABS: Basophils # (auto) 0.1 10 ^3/uL (0-0.2); Basophils % (auto) 0.7 % (0.0-2.0); Eosinophils # (auto) 0.3 10 ^3/uL (0-0.8); Hematocrit 42.4 % (36.0-46.0); Hemoglobin 14.4 g/dL (12.2-16.2); Lymphocytes # (auto) 1.4 10 ^3/uL (0.4-5.4); Lymphocytes % (auto) 13.6 % (10.0-50.0); Mean Corpuscular Hemoglobin 30.2 pg (28.0-32.0); Mean Corpuscular Hgb Conc. 33.9 g/dL (32.0-36.0); Mean Corpuscular Volume 89.2 fL (80.0-100.0); Monocytes % (auto) 9.2 % (0.0-12.0); Neutrophils # (auto) 7.6 10 ^3/uL (1.6-8.6); Neutrophils % (auto) 73.5 % (37.0-80.0); Nucleated Red Blood Cells % 0.1 %; Red Blood Cells 4.75 10^6/uL (4.0-5.20); Red Cell Distribution Width 14.8 % (11.8-14.3); White Blood Cell 10.4 10^3/uL (4.4-10.8)
[2020-11-02 08:16] LABS: Anion Gap 5 (5-15); Blood Urea Nitrogen 18 mg/dL (7-18); Calcium 9.7 mg/dL (8.5-10.1); Carbon Dioxide 28 mmol/L (21-32); Chloride 107 mmol/L (98-107); Glucose 104 mg/dL (74-106); Potassium 4.2 mmol/L (3.5-5.1); Sodium 140 mmol/L (136-145)
[2020-11-02 08:22] LABS: Alanine Aminotransferase 125 U/L (13-56); Alkaline Phosphatase 72 U/L (45-117); Aspartate Aminotransferase 171 U/L (15-37); BUN/Creatinine Ratio 27.7; Bilirubin, Total 0.6 mg/dL (0.2-1.0); GFR African American 115 mL/min; GFR Non-African American 95 mL/min; Total Protein 6.6 g/dL (6.4-8.2)
[2020-11-02] MEDS ORDERED: MORPHINE SULF INJ 2 MG/ML SYRINGE 1ML IV PRN (10:00)
[2020-11-02] MEDS ORDERED: PROPRANOLOL HCL 20 MG TAB PO SCH (10:00)
[2020-11-02] MEDS ORDERED: ACETAMINOPHEN 500 MG TAB PO PRN (10:00)
[2020-11-02] MEDS ORDERED: NITROGLYCERIN 0.4 MG SL TAB SL PRN (10:00)
[2020-11-02] MEDS: PROPRANOLOL HCL 20 MG TAB PO SCH ×2 (10:23→21:56)
[2020-11-02 10:43] LABS: Urine Bacteria NONE SEEN /hpf (None Seen); Urine Blood 1+ /uL (Negative); Urine Mucus FEW (None Seen); Urine Specific Gravity 1.023 (1.001-1.035); Urine WBC 6 /hpf (0 - 5)
[2020-11-02] MEDS: FAMOTIDINE 20 MG TAB PO SCH (10:43)
[2020-11-02] MEDS: HYDROcodone-ACET 5/325MG TAB PO PRN (10:44)
[2020-11-02] MEDS: MORPHINE SULF INJ 2 MG/ML SYRINGE 1ML IV PRN (12:39)
[2020-11-02] MEDS: ONDANSETRON HCL 4 MG/2 ML VIAL IV PRN (12:39)
[2020-11-02] MEDS: Ensure Enlive Strawberry 8oz Bottle PO SCH ×2 (13:10→19:09)
[2020-11-02] MEDS: GABAPENTIN 300 MG CAP PO SCH ×2 (13:47→21:56)
[2020-11-02] MEDS: ATORVASTATIN 20 MG TAB PO SCH (21:56)
[2020-11-02 22:00] VITALS: BP 132/63
[2020-11-03 05:00] VITALS: BP 151/58
[2020-11-03 05:15] VITALS: BP 142/63
[2020-11-03] MEDS: GABAPENTIN 300 MG CAP PO SCH ×3 (05:51→21:47)
[2020-11-03 09:05] VITALS: BP 115/70
[2020-11-03] MEDS: PROPRANOLOL HCL 20 MG TAB PO SCH ×2 (09:33→21:46)
[2020-11-03] MEDS: Ensure Enlive Strawberry 8oz Bottle PO SCH ×3 (09:33→18:47)
[2020-11-03] MEDS: FAMOTIDINE 20 MG TAB PO SCH (09:33)
[2020-11-03] MEDS: ONDANSETRON HCL 4 MG/2 ML VIAL IV PRN (09:34)
[2020-11-03] MEDS: MORPHINE SULF INJ 2 MG/ML SYRINGE 1ML IV PRN (09:34)
[2020-11-03 09:37] LABS: INR 1.13 (0.9-1.15)
[2020-11-03] MEDS ORDERED: ALPRAZolam 0.5 MG TAB PO PRN (09:45)
[2020-11-03] MEDS ORDERED: IPRATROPIUM BROM 0.5 MG/2.5ML INH SOL NEB PRN (09:45)
[2020-11-03] MEDS ORDERED: ALBUTEROL SULF 2.5 MG/0.5ML(0.5%) NEB SOLN NEB PRN (09:45)
[2020-11-03] MEDS ORDERED: cefTRIAXone 1GM/50ML D5W 50 ML IV ONE (10:00)
[2020-11-03 12:40] VITALS: BP 90/55
[2020-11-03 16:28] VITALS: BP 88/39
[2020-11-03] MEDS: ATORVASTATIN 20 MG TAB PO SCH (21:47)
[2020-11-03 22:26] VITALS: BP 101/59
[2020-11-04 05:00] VITALS: BP 104/75
[2020-11-04] MEDS: GABAPENTIN 300 MG CAP PO SCH ×3 (05:23→22:51)
[2020-11-04 05:49] LABS: Basophils # (auto) 0.1 10 ^3/uL (0-0.2); Basophils % (auto) 0.7 % (0.0-2.0); Eosinophils # (auto) 0.3 10 ^3/uL (0-0.8); Eosinophils % (auto) 3.1 % (0.0-7.0); Hematocrit 38.9 % (36.0-46.0); Hemoglobin 13.2 g/dL (12.2-16.2); Lymphocytes % (auto) 21.3 % (10.0-50.0); Mean Corpuscular Hemoglobin 30.5 pg (28.0-32.0); Mean Corpuscular Hgb Conc. 34.1 g/dL (32.0-36.0); Mean Corpuscular Volume 89.4 fL (80.0-100.0); Monocytes # (auto) 1.4 10 ^3/uL (0-1.3); Monocytes % (auto) 14.6 % (0.0-12.0); Neutrophils # (auto) 5.8 10 ^3/uL (1.6-8.6); Neutrophils % (auto) 60.3 % (37.0-80.0); Nucleated Red Blood Cells % 0.1 %; Red Blood Cells 4.35 10^6/uL (4.0-5.20); Red Cell Distribution Width 14.7 % (11.8-14.3); White Blood Cell 9.6 10^3/uL (4.4-10.8)
[2020-11-04 05:57] LABS: Calcium 10.1 mg/dL (8.5-10.1); Potassium 4.6 mmol/L (3.5-5.1)
[2020-11-04 06:00] LABS: Albumin 2.8 g/dL (3.4-5.0)
[2020-11-04 06:03] LABS: Bilirubin, Total 0.4 mg/dL (0.2-1.0)
[2020-11-04] MEDS ORDERED: BUPIVACAINE 0.5% MPF INJ 30ML SDV IJ ONE (07:09)
[2020-11-04] MEDS ORDERED: LIDOCAINE 1% HCL (LOCAL ANESTH.) INJ 20ML MDV ONE (07:10)
[2020-11-04] MEDS ORDERED: SUCCINYLCHOLINE CHLORIDE 20 MG/ML 10ML VIAL IV ONE (07:10)
[2020-11-04] MEDS ORDERED: fentaNYL CITRATE 5 ML ONE (07:21)
[2020-11-04] MEDS ORDERED: HYDROmorphone HCL 2 MG/ML VL ONE (07:21)
[2020-11-04] MEDS ORDERED: fentaNYL CITRATE 100 MCG/2 ML VL ONE (07:21)
[2020-11-04] MEDS ORDERED: ONDANSETRON HCL 4 MG/2 ML VIAL ONE (07:22)
[2020-11-04] MEDS ORDERED: ROCURONIUM 10MG/ML 10ML VIAL IV ONE (07:22)
[2020-11-04] MEDS ORDERED: SODIUM CHLORIDE LOCK 10 ML ONE (07:22)
[2020-11-04] MEDS ORDERED: MIDAZOLAM HCL 2MG/2ML 2ml VIAL (1mg/ml) ONE (07:22)
[2020-11-04] MEDS ORDERED: ceFAZolin 1GM/50ML 50 ML IV ONE (07:24)
[2020-11-04] MEDS ORDERED: PROPOFOL 10 MG/ML 20 ML IV ONE (07:25)
[2020-11-04] MEDS ORDERED: VANCOMYCIN HCL 1000 MG VL ONE (07:25)
[2020-11-04] MEDS ORDERED: KETOROLAC TROMETH 30 MG/ML 1ML VIAL ONE (07:25)
[2020-11-04] MEDS ORDERED: BUPIVACAINE 0.25% INJ 50ML VIAL ONE (07:26)
[2020-11-04] MEDS: Ensure Enlive Strawberry 8oz Bottle PO SCH ×3 (08:00→18:49)
[2020-11-04] MEDS ORDERED: MORPHINE SULF(PF) 0.5MG/ML 10ML VIAL ONE (08:21)
[2020-11-04] MEDS ORDERED: TRANEXAMIC ACID 20 ML ONE (08:23)
[2020-11-04] MEDS ORDERED: cefTRIAXone 1GM/50ML D5W 50 ML IV SCH (09:00)
[2020-11-04] MEDS: FAMOTIDINE 20 MG TAB PO SCH (10:00)
[2020-11-04] MEDS: PROPRANOLOL HCL 20 MG TAB PO SCH ×2 (10:00→22:50)
[2020-11-04] MEDS ORDERED: HYDROmorphone HCL 2 MG/ML VL IV PRN (10:30)
[2020-11-04] MEDS ORDERED: MORPHINE SULFATE 4 MG/ML SYR/VIAL IV PRN (10:30)
[2020-11-04 11:56] VITALS: BP 132/77
[2020-11-04] MEDS: ceFAZolin 1GM/50ML 50 ML IV SCH ×2 (16:12→20:03)
[2020-11-04 16:35] VITALS: BP 122/71
[2020-11-04] MEDS: LACTATED RINGER'S 1,000 ML IV SCH ×2 (19:00→20:04)
[2020-11-04] MEDS: ONDANSETRON HCL 4 MG/2 ML VIAL IV PRN (19:08)
[2020-11-04] MEDS: MORPHINE SULF INJ 2 MG/ML SYRINGE 1ML IV PRN (19:08)
[2020-11-04 22:00] VITALS: BP 133/72
[2020-11-04] MEDS: ATORVASTATIN 20 MG TAB PO SCH (22:51)
[2020-11-05] MEDS: ceFAZolin 1GM/50ML 50 ML IV SCH (02:19)
[2020-11-05] MEDS: MORPHINE SULF INJ 2 MG/ML SYRINGE 1ML IV PRN (03:52)
[2020-11-05] MEDS: ONDANSETRON HCL 4 MG/2 ML VIAL IV PRN (03:52)
[2020-11-05 05:00] VITALS: BP 139/67
[2020-11-05 05:24] LABS: Basophils # (auto) 0 10 ^3/uL (0-0.2); Basophils % (auto) 0.3 % (0.0-2.0); Eosinophils # (auto) 0.1 10 ^3/uL (0-0.8); Eosinophils % (auto) 1.2 % (0.0-7.0); Hematocrit 37.6 % (36.0-46.0); Hemoglobin 12.4 g/dL (12.2-16.2); Lymphocytes # (auto) 1.5 10 ^3/uL (0.4-5.4); Lymphocytes % (auto) 13.2 % (10.0-50.0); Mean Corpuscular Hgb Conc. 32.9 g/dL (32.0-36.0); Mean Corpuscular Volume 91.2 fL (80.0-100.0); Monocytes # (auto) 1.4 10 ^3/uL (0-1.3); Monocytes % (auto) 12.3 % (0.0-12.0); Neutrophils # (auto) 8.2 10 ^3/uL (1.6-8.6); Nucleated Red Blood Cells % 0.1 %; Red Blood Cells 4.12 10^6/uL (4.0-5.20); Red Cell Distribution Width 14.6 % (11.8-14.3); White Blood Cell 11.2 10^3/uL (4.4-10.8)
[2020-11-05 05:40] LABS: Calcium 9.5 mg/dL (8.5-10.1); Potassium 4.6 mmol/L (3.5-5.1)
[2020-11-05 05:43] LABS: BUN/Creatinine Ratio 33.3
[2020-11-05] MEDS: GABAPENTIN 300 MG CAP PO SCH ×3 (06:41→23:22)
[2020-11-05] MEDS: LACTATED RINGER'S 1,000 ML IV SCH ×2 (06:41→16:15)
[2020-11-05 09:00] VITALS: BP 117/77
[2020-11-05] MEDS: FAMOTIDINE 20 MG TAB PO SCH (09:01)
[2020-11-05] MEDS: HYDROcodone-ACET 5/325MG TAB PO PRN ×2 (09:01→23:22)
[2020-11-05] MEDS: cefTRIAXone 1GM/50ML D5W 50 ML IV SCH (09:01)
[2020-11-05] MEDS: PROPRANOLOL HCL 20 MG TAB PO SCH ×2 (09:16→23:23)
[2020-11-05] MEDS: Ensure Enlive Strawberry 8oz Bottle PO SCH ×3 (09:16→19:03)
[2020-11-05 13:00] VITALS: BP 93/49
[2020-11-05] MEDS: traMADol HCL 50 MG TAB PO PRN (13:04)
[2020-11-05 16:55] VITALS: BP 92/54
[2020-11-05 22:00] VITALS: BP 133/77
[2020-11-05] MEDS: ATORVASTATIN 20 MG TAB PO SCH (23:22)
[2020-11-06] MEDS: LACTATED RINGER'S 1,000 ML IV SCH ×3 (02:15→22:15)
[2020-11-06 05:00] VITALS: BP 136/67
[2020-11-06 05:44] LABS: Basophils # (auto) 0 10 ^3/uL (0-0.2); Basophils % (auto) 0.4 % (0.0-2.0); Eosinophils # (auto) 0.2 10 ^3/uL (0-0.8); Eosinophils % (auto) 1.7 % (0.0-7.0); Hematocrit 36.1 % (36.0-46.0); Hemoglobin 12.2 g/dL (12.2-16.2); Lymphocytes # (auto) 1.6 10 ^3/uL (0.4-5.4); Lymphocytes % (auto) 15.5 % (10.0-50.0); Mean Corpuscular Hemoglobin 30.4 pg (28.0-32.0); Mean Corpuscular Hgb Conc. 33.7 g/dL (32.0-36.0); Mean Corpuscular Volume 90.2 fL (80.0-100.0); Monocytes # (auto) 1.5 10 ^3/uL (0-1.3); Monocytes % (auto) 14.7 % (0.0-12.0); Neutrophils # (auto) 6.8 10 ^3/uL (1.6-8.6); Neutrophils % (auto) 67.7 % (37.0-80.0); Nucleated Red Blood Cells % 0.1 %; Red Cell Distribution Width 14.2 % (11.8-14.3)
[2020-11-06 06:09] LABS: Calcium 9.6 mg/dL (8.5-10.1); Potassium 5.2 mmol/L (3.5-5.1)
[2020-11-06] MEDS: HYDROcodone-ACET 5/325MG TAB PO PRN ×2 (06:23→16:44)
[2020-11-06] MEDS: GABAPENTIN 300 MG CAP PO SCH ×3 (06:23→22:29)
[2020-11-06 09:00] VITALS: BP 104/58
[2020-11-06] MEDS: PROPRANOLOL HCL 20 MG TAB PO SCH ×2 (10:00→22:00)
[2020-11-06] MEDS ORDERED: SODIUM ZIRCONIUM CYCL 10 GM PAK PO ONE (11:00)
[2020-11-06] MEDS: Ensure Enlive Strawberry 8oz Bottle PO SCH ×3 (11:11→17:58)
[2020-11-06] MEDS: cefTRIAXone 1GM/50ML D5W 50 ML IV SCH (11:12)
[2020-11-06] MEDS: MORPHINE SULF INJ 2 MG/ML SYRINGE 1ML IV PRN ×2 (11:19→22:30)
[2020-11-06] MEDS: FAMOTIDINE 20 MG TAB PO SCH (11:22)
[2020-11-06 12:46] VITALS: BP 102/70
[2020-11-06 16:41] VITALS: BP 122/68
[2020-11-06 22:00] VITALS: BP 103/67
[2020-11-06] MEDS: ATORVASTATIN 20 MG TAB PO SCH (22:29)
[2020-11-07 05:00] VITALS: BP 119/72
[2020-11-07 06:12] LABS: Basophils # (auto) 0 10 ^3/uL (0-0.2); Basophils % (auto) 0.5 % (0.0-2.0); Eosinophils # (auto) 0.4 10 ^3/uL (0-0.8); Eosinophils % (auto) 4.9 % (0.0-7.0); Hematocrit 35.8 % (36.0-46.0); Hemoglobin 12.2 g/dL (12.2-16.2); Lymphocytes # (auto) 1.1 10 ^3/uL (0.4-5.4); Lymphocytes % (auto) 14.9 % (10.0-50.0); Mean Corpuscular Hemoglobin 30.9 pg (28.0-32.0); Mean Corpuscular Hgb Conc. 34.2 g/dL (32.0-36.0); Mean Corpuscular Volume 90.3 fL (80.0-100.0); Monocytes # (auto) 1.1 10 ^3/uL (0-1.3); Monocytes % (auto) 14.8 % (0.0-12.0); Neutrophils % (auto) 64.9 % (37.0-80.0); Red Blood Cells 3.96 10^6/uL (4.0-5.20); Red Cell Distribution Width 14.3 % (11.8-14.3); White Blood Cell 7.6 10^3/uL (4.4-10.8)
[2020-11-07] MEDS: GABAPENTIN 300 MG CAP PO SCH ×3 (06:27→22:23)
[2020-11-07 06:36] LABS: BUN/Creatinine Ratio 40.5; Calcium 10.5 mg/dL (8.5-10.1)
[2020-11-07 08:00] VITALS: BP 103/67
[2020-11-07] MEDS: Ensure Enlive Strawberry 8oz Bottle PO SCH ×3 (08:00→18:00)
[2020-11-07] MEDS: LACTATED RINGER'S 1,000 ML IV SCH ×2 (08:15→18:35)
[2020-11-07 08:30] VITALS: BP 102/66
[2020-11-07] MEDS: FAMOTIDINE 20 MG TAB PO SCH (09:47)
[2020-11-07] MEDS: PROPRANOLOL HCL 20 MG TAB PO SCH ×2 (09:47→22:00)
[2020-11-07] MEDS: HYDROcodone-ACET 5/325MG TAB PO PRN ×2 (09:48→16:30)
[2020-11-07] MEDS: cefTRIAXone 1GM/50ML D5W 50 ML IV SCH (09:48)
[2020-11-07] MEDS ORDERED: FLUCONAZOLE 100 MG TAB PO ONE (12:15)
[2020-11-07 13:00] VITALS: BP 113/75
[2020-11-07 17:00] VITALS: BP 108/58
[2020-11-07 21:40] VITALS: BP 94/64
[2020-11-07] MEDS: ATORVASTATIN 20 MG TAB PO SCH (22:23)
[2020-11-08] MEDS: LACTATED RINGER'S 1,000 ML IV SCH ×2 (03:44→14:15)
[2020-11-08 05:05] VITALS: BP 121/71
[2020-11-08] MEDS: GABAPENTIN 300 MG CAP PO SCH ×3 (05:40→20:51)
[2020-11-08 09:00] VITALS: BP 117/70
[2020-11-08] MEDS: cefTRIAXone 1GM/50ML D5W 50 ML IV SCH (09:55)
[2020-11-08] MEDS: FLUCONAZOLE 100 MG TAB PO SCH (09:56)
[2020-11-08] MEDS: FAMOTIDINE 20 MG TAB PO SCH (09:57)
[2020-11-08] MEDS: Ensure Enlive Strawberry 8oz Bottle PO SCH ×3 (09:57→18:23)
[2020-11-08] MEDS: PROPRANOLOL HCL 20 MG TAB PO SCH ×2 (10:00→20:50)
[2020-11-08 12:30] VITALS: BP 112/82
[2020-11-08 17:00] VITALS: BP 112/69
[2020-11-08] MEDS: HYDROcodone-ACET 5/325MG TAB PO PRN (18:44)
[2020-11-08] MEDS: ATORVASTATIN 20 MG TAB PO SCH (20:50)
[2020-11-08 22:00] VITALS: BP 116/79
[2020-11-09] MEDS: LACTATED RINGER'S 1,000 ML IV SCH ×2 (00:15→14:18)
[2020-11-09 05:00] VITALS: BP 128/77
[2020-11-09] MEDS: HYDROcodone-ACET 5/325MG TAB PO PRN (05:02)
[2020-11-09] MEDS: GABAPENTIN 300 MG CAP PO SCH ×3 (05:02→22:43)
[2020-11-09] MEDS: Ensure Enlive Strawberry 8oz Bottle PO SCH ×3 (08:58→18:22)
[2020-11-09 09:00] VITALS: BP 101/67
[2020-11-09] MEDS: FLUCONAZOLE 100 MG TAB PO SCH (09:07)
[2020-11-09] MEDS: PROPRANOLOL HCL 20 MG TAB PO SCH ×2 (09:07→22:42)
[2020-11-09] MEDS: cefTRIAXone 1GM/50ML D5W 50 ML IV SCH (09:07)
[2020-11-09] MEDS: MORPHINE SULF INJ 2 MG/ML SYRINGE 1ML IV PRN ×2 (09:10→18:42)
[2020-11-09 12:57] VITALS: BP 119/66
[2020-11-09 17:00] VITALS: BP 102/66
[2020-11-09 22:00] VITALS: BP 102/70
[2020-11-09] MEDS: ATORVASTATIN 20 MG TAB PO SCH (22:43)
[2020-11-10 05:00] VITALS: BP 105/69
[2020-11-10] MEDS: GABAPENTIN 300 MG CAP PO SCH ×3 (05:33→22:02)
[2020-11-10] MEDS: Ensure Enlive Strawberry 8oz Bottle PO SCH ×3 (07:44→18:15)
[2020-11-10] MEDS: HYDROcodone-ACET 5/325MG TAB PO PRN (07:58)
[2020-11-10 08:00] VITALS: BP 113/70
[2020-11-10] MEDS: cefTRIAXone 1GM/50ML D5W 50 ML IV SCH (08:48)
[2020-11-10 09:00] VITALS: BP 113/70
[2020-11-10] MEDS: PROPRANOLOL HCL 20 MG TAB PO SCH ×2 (09:58→22:02)
[2020-11-10] MEDS: FLUCONAZOLE 100 MG TAB PO SCH (09:59)
[2020-11-10] MEDS ORDERED: levoFLOXacin 500MG 100 ML IV ONE (11:15)
[2020-11-10 13:00] VITALS: BP 103/59
[2020-11-10 17:00] VITALS: BP 102/66
[2020-11-10 22:00] VITALS: BP 105/67
[2020-11-10] MEDS: ATORVASTATIN 20 MG TAB PO SCH (22:02)
[2020-11-11 05:00] VITALS: BP 100/68
[2020-11-11] MEDS: GABAPENTIN 300 MG CAP PO SCH ×3 (05:53→22:50)
[2020-11-11 08:00] VITALS: BP 117/72
[2020-11-11 09:00] VITALS: BP 117/72
[2020-11-11] MEDS: Ensure Enlive Strawberry 8oz Bottle PO SCH ×3 (09:34→18:15)
[2020-11-11] MEDS: FLUCONAZOLE 100 MG TAB PO SCH (09:36)
[2020-11-11] MEDS: PROPRANOLOL HCL 20 MG TAB PO SCH ×2 (09:38→22:00)
[2020-11-11] MEDS ORDERED: levoFLOXacin 500MG 100 ML IV SCH (10:00)
[2020-11-11 13:00] VITALS: BP 122/68
[2020-11-11 17:00] VITALS: BP 113/61
[2020-11-11] MEDS: HYDROcodone-ACET 5/325MG TAB PO PRN (20:37)
[2020-11-11 22:00] VITALS: BP 108/59
[2020-11-11] MEDS: ATORVASTATIN 20 MG TAB PO SCH (22:49)
[2020-11-12 05:00] VITALS: BP 116/67
[2020-11-12] MEDS: GABAPENTIN 300 MG CAP PO SCH ×3 (06:38→22:18)
[2020-11-12 08:10] LABS: Basophils # (auto) 0.1 10 ^3/uL (0-0.2); Basophils % (auto) 0.6 % (0.0-2.0); Eosinophils # (auto) 0.4 10 ^3/uL (0-0.8); Eosinophils % (auto) 4.6 % (0.0-7.0); Hematocrit 37.3 % (36.0-46.0); Hemoglobin 12.5 g/dL (12.2-16.2); Lymphocytes % (auto) 22.3 % (10.0-50.0); Mean Corpuscular Hemoglobin 30.3 pg (28.0-32.0); Mean Corpuscular Hgb Conc. 33.6 g/dL (32.0-36.0); Mean Corpuscular Volume 90.3 fL (80.0-100.0); Monocytes # (auto) 1.4 10 ^3/uL (0-1.3); Monocytes % (auto) 15.8 % (0.0-12.0); Neutrophils % (auto) 56.7 % (37.0-80.0); Nucleated Red Blood Cells % 0.1 %; Red Blood Cells 4.13 10^6/uL (4.0-5.20); Red Cell Distribution Width 14.3 % (11.8-14.3); White Blood Cell 8.8 10^3/uL (4.4-10.8)
[2020-11-12 08:27] LABS: BUN/Creatinine Ratio 68.3; Calcium 11.2 mg/dL (8.5-10.1); Potassium 5.1 mmol/L (3.5-5.1)
[2020-11-12 09:00] VITALS: BP 113/76
[2020-11-12] MEDS ORDERED: levoFLOXacin 250MG 50 ML IV SCH (10:00)
[2020-11-12] MEDS: FLUCONAZOLE 100 MG TAB PO SCH (10:38)
[2020-11-12] MEDS: PROPRANOLOL HCL 20 MG TAB PO SCH ×2 (10:41→22:17)
[2020-11-12 12:52] VITALS: BP 127/95
[2020-11-12 16:58] VITALS: BP 117/78
[2020-11-12] MEDS: traMADol HCL 50 MG TAB PO PRN (18:30)
[2020-11-12 22:00] VITALS: BP 117/59
[2020-11-12] MEDS: ATORVASTATIN 20 MG TAB PO SCH (22:17)
[2020-11-13 05:00] VITALS: BP 110/66
[2020-11-13] MEDS: GABAPENTIN 300 MG CAP PO SCH ×3 (06:34→21:26)
[2020-11-13 08:03] LABS: Calcium 11.3 mg/dL (8.5-10.1)
[2020-11-13 09:00] VITALS: BP 119/70
[2020-11-13] MEDS: FLUCONAZOLE 100 MG TAB PO SCH (09:38)
[2020-11-13] MEDS: levoFLOXacin 250 MG TAB PO SCH (09:39)
[2020-11-13] MEDS: PROPRANOLOL HCL 20 MG TAB PO SCH ×2 (09:39→21:25)
[2020-11-13 13:00] VITALS: BP 107/61
[2020-11-13 17:00] VITALS: BP 101/62
[2020-11-13] MEDS: ATORVASTATIN 20 MG TAB PO SCH (21:25)
[2020-11-13] MEDS: HYDROcodone-ACET 5/325MG TAB PO PRN (21:27)
[2020-11-13 22:00] VITALS: BP 113/72
[2020-11-14 05:00] VITALS: BP 114/70
[2020-11-14] MEDS: GABAPENTIN 300 MG CAP PO SCH ×3 (05:46→21:07)
[2020-11-14 06:40] LABS: Basophils # (auto) 0.1 10 ^3/uL (0-0.2); Basophils % (auto) 0.4 % (0.0-2.0); Eosinophils # (auto) 0.1 10 ^3/uL (0-0.8); Eosinophils % (auto) 0.9 % (0.0-7.0); Hematocrit 38.4 % (36.0-46.0); Hemoglobin 12.6 g/dL (12.2-16.2); Lymphocytes # (auto) 1.6 10 ^3/uL (0.4-5.4); Lymphocytes % (auto) 11.1 % (10.0-50.0); Mean Corpuscular Hemoglobin 29.5 pg (28.0-32.0); Mean Corpuscular Hgb Conc. 32.7 g/dL (32.0-36.0); Mean Corpuscular Volume 90.2 fL (80.0-100.0); Monocytes # (auto) 1.7 10 ^3/uL (0-1.3); Monocytes % (auto) 11.9 % (0.0-12.0); Neutrophils # (auto) 10.8 10 ^3/uL (1.6-8.6); Neutrophils % (auto) 75.7 % (37.0-80.0); Red Blood Cells 4.26 10^6/uL (4.0-5.20); Red Cell Distribution Width 14.1 % (11.8-14.3); White Blood Cell 14.3 10^3/uL (4.4-10.8)
[2020-11-14 06:48] LABS: Calcium 11.3 mg/dL (8.5-10.1); Potassium 4.6 mmol/L (3.5-5.1)
[2020-11-14 06:50] LABS: BUN/Creatinine Ratio 60.6
[2020-11-14 09:02] VITALS: BP 105/68
[2020-11-14] MEDS: FLUCONAZOLE 100 MG TAB PO SCH (09:31)
[2020-11-14] MEDS: PROPRANOLOL HCL 20 MG TAB PO SCH ×2 (09:31→21:07)
[2020-11-14] MEDS: levoFLOXacin 250 MG TAB PO SCH (09:32)
[2020-11-14 13:00] VITALS: BP 122/69
[2020-11-14 16:57] VITALS: BP 100/59
[2020-11-14] MEDS: ATORVASTATIN 20 MG TAB PO SCH (21:07)
[2020-11-14 22:04] VITALS: BP_SYST 116; BP_SYST 130; BP_DIAS 63; BP_DIAS 69
[2020-11-15 05:00] VITALS: BP 113/62
[2020-11-15] MEDS: GABAPENTIN 300 MG CAP PO SCH ×3 (05:28→22:37)
[2020-11-15 08:44] VITALS: BP 102/61
[2020-11-15] MEDS: FLUCONAZOLE 100 MG TAB PO SCH (09:34)
[2020-11-15] MEDS: PROPRANOLOL HCL 20 MG TAB PO SCH ×2 (09:35→22:37)
[2020-11-15] MEDS: levoFLOXacin 250 MG TAB PO SCH (09:35)
[2020-11-15] MEDS: PANTOPRAZOLE 40 MG TAB PO SCH (09:35)
[2020-11-15 12:57] VITALS: BP 104/66
[2020-11-15 17:00] VITALS: BP 96/71
[2020-11-15 22:00] VITALS: BP_SYST 108; BP_SYST 113; BP_DIAS 46; BP_DIAS 63
[2020-11-15] MEDS: ATORVASTATIN 20 MG TAB PO SCH (22:37)
[2020-11-16 05:00] VITALS: BP 123/68
[2020-11-16] MEDS: GABAPENTIN 300 MG CAP PO SCH ×3 (06:06→22:19)
[2020-11-16 08:00] VITALS: BP 124/84
[2020-11-16] MEDS: FLUCONAZOLE 100 MG TAB PO SCH (09:06)
[2020-11-16] MEDS: PROPRANOLOL HCL 20 MG TAB PO SCH ×2 (09:07→22:19)
[2020-11-16] MEDS: levoFLOXacin 250 MG TAB PO SCH (09:07)
[2020-11-16] MEDS: PANTOPRAZOLE 40 MG TAB PO SCH (09:08)
[2020-11-16 12:00] VITALS: BP 113/68
[2020-11-16 16:00] VITALS: BP 108/66
[2020-11-16] MEDS: ATORVASTATIN 20 MG TAB PO SCH (22:19)
[2020-11-17 05:00] VITALS: BP 116/74
[2020-11-17] MEDS: GABAPENTIN 300 MG CAP PO SCH ×3 (05:44→22:28)
[2020-11-17 08:00] VITALS: BP 134/87
[2020-11-17 09:00] VITALS: BP 134/87
[2020-11-17] MEDS: levoFLOXacin 250 MG TAB PO SCH (10:03)
[2020-11-17] MEDS: FLUCONAZOLE 100 MG TAB PO SCH (10:04)
[2020-11-17] MEDS: PROPRANOLOL HCL 20 MG TAB PO SCH ×2 (10:05→22:00)
[2020-11-17] MEDS: PANTOPRAZOLE 40 MG TAB PO SCH (10:05)
[2020-11-17 13:00] VITALS: BP 112/73
[2020-11-17 17:00] VITALS: BP 100/64
[2020-11-17 22:00] VITALS: BP 108/66
[2020-11-17] MEDS: ATORVASTATIN 20 MG TAB PO SCH (22:28)
[2020-11-18 05:00] VITALS: BP 105/65
[2020-11-18] MEDS: GABAPENTIN 300 MG CAP PO SCH ×2 (05:44→13:51)
[2020-11-18 09:30] VITALS: BP 97/64
[2020-11-18] MEDS: FLUCONAZOLE 100 MG TAB PO SCH (09:43)
[2020-11-18] MEDS: PANTOPRAZOLE 40 MG TAB PO SCH (09:45)
[2020-11-18] MEDS: levoFLOXacin 250 MG TAB PO SCH (09:45)
[2020-11-18] MEDS: PROPRANOLOL HCL 20 MG TAB PO SCH (10:00)
[2020-11-18 11:51] LABS: Basophils # (auto) 0.1 10 ^3/uL (0-0.2); Basophils % (auto) 0.7 % (0.0-2.0); Eosinophils # (auto) 0.3 10 ^3/uL (0-0.8); Eosinophils % (auto) 3.1 % (0.0-7.0); Hemoglobin 12.4 g/dL (12.2-16.2); Lymphocytes # (auto) 1.7 10 ^3/uL (0.4-5.4); Lymphocytes % (auto) 19.3 % (10.0-50.0); Mean Corpuscular Hgb Conc. 33.6 g/dL (32.0-36.0); Mean Corpuscular Volume 89.2 fL (80.0-100.0); Monocytes # (auto) 1.4 10 ^3/uL (0-1.3); Monocytes % (auto) 16.3 % (0.0-12.0); Neutrophils # (auto) 5.2 10 ^3/uL (1.6-8.6); Neutrophils % (auto) 60.6 % (37.0-80.0); Red Blood Cells 4.14 10^6/uL (4.0-5.20); Red Cell Distribution Width 14.3 % (11.8-14.3); White Blood Cell 8.6 10^3/uL (4.4-10.8)
[2020-11-18 12:18] LABS: Albumin 2.3 g/dL (3.4-5.0); Calcium 10.3 mg/dL (8.5-10.1); Potassium 4.9 mmol/L (3.5-5.1)
[2020-11-18 12:23] LABS: BUN/Creatinine Ratio 53.3; Bilirubin, Total 0.3 mg/dL (0.2-1.0); Total Protein 6.8 g/dL (6.4-8.2)
[2020-11-18] MEDS: HYDROcodone-ACET 5/325MG TAB PO PRN ×2 (13:07→18:30)
[2020-11-18 17:12] VITALS: BP 97/64
[2020-11-18 18:00] VITALS: BP 110/71
== END 2020-11-18 19:00 | disposition home health service (06) | DRG 493 ==
LOC: EDBD 06:28 → ER 06:28 → TELE 10:00 → TELE-WESTW 20:37 → WEST WING 11-13 17:28
PROVIDERS: ADMIT Nurse Practitioner Acute Care; ATTEND Family Medicine
PROC: 0LQ20ZZ Repair Left Shoulder Tendon, Open Approach (ICD-10-PCS; 2020-11-04)
PROC: 0PSD04Z Reposition Left Humeral Head with Internal Fixation Device, Open Approach (ICD-10-PCS; principal; 2020-11-04 07:35)
DX: S42.212A Unspecified displaced fracture of surgical neck of left humerus, initial encounter for closed fracture (principal); E44.0 Moderate protein-calorie malnutrition; R65.10 Systemic inflammatory response syndrome (SIRS) of non-infectious origin without acute organ dysfunction; E87.1 Hypo-osmolality and hyponatremia; B37.49 Other urogenital candidiasis; Z20.822 Contact with and (suspected) exposure to COVID-19; F32.9 Major depressive disorder, single episode, unspecified; F41.9 Anxiety disorder, unspecified; I10 Essential (primary) hypertension; J45.909 Unspecified asthma, uncomplicated; E78.5 Hyperlipidemia, unspecified; M19.90 Unspecified osteoarthritis, unspecified site; E83.52 Hypercalcemia; W18.39XA Other fall on same level, initial encounter; E87.5 Hyperkalemia; Z79.51 Long term (current) use of inhaled steroids; Z79.82 Long term (current) use of aspirin; Z80.3 Family history of malignant neoplasm of breast; Z79.899 Other long term (current) drug therapy; Z82.3 Family history of stroke; Z82.49 Family history of ischemic heart disease and other diseases of the circulatory system; Y93.89 Activity, other specified; Y92.89 Other specified places as the place of occurrence of the external cause; Y99.8 Other external cause status; Z68.20 Body mass index [BMI] 20.0-20.9, adult; Z88.6 Allergy status to analgesic agent; Z88.5 Allergy status to narcotic agent; G25.0 Essential tremor
CPT/HCPCS: 36415; 71045; 73030; 73060; 73200; 76000; 80048; 80053; 81001; 84443; 84484; 85025; 85610; 86850; 86900; 86901; 87086; 87088; 87186; 87426; 96361; 96374; 96375; 96376; 97110; 97116; 97163; 97530; A4565; G0378; J0330; J0690; J0696; J1885; J1956; J2001; J2250; J2405; J2704; J3490

== ENCOUNTER → 2021-05-05 | Outpatient (CLI) | payer OTHER, MEDICARE ==
[~2021-05-05] MED LIST changes: -ASPI-231 PO; +ASPI1TAB20 PO; +ONDA-144 PO
[2021-05-05 11:59] LABS: Urine Amorphous Crystal FEW /hpf (None Seen); Urine Bacteria FEW /hpf (None Seen); Urine Blood Negative /uL (Negative); Urine Specific Gravity 1.017 (1.001-1.035); Urine WBC 2 /hpf (0 - 5)
== END | disposition home or self-care (01) ==
LOC: LAB 07:20
PROVIDERS: ATTEND Nurse Practitioner Family
DX: N39.0 Urinary tract infection, site not specified (principal)
CPT/HCPCS: 81001; 87086; 87088; 87186

== ENCOUNTER 2021-05-06 13:53 | Emergency (ER) | payer OTHER, MEDICARE ==
[~2021-05-06] VITALS: Ht 157.5 cm; Wt 45.4 kg
[~2021-05-06 13:53] MED LIST changes: -ONDA-144 PO
[2021-05-06 15:25] LABS: Basophils # (auto) 0 10 ^3/uL (0-0.2); Basophils % (auto) 0.3 % (0.0-2.0); Eosinophils # (auto) 0.1 10 ^3/uL (0-0.8); Eosinophils % (auto) 0.7 % (0.0-7.0); Hematocrit 48.3 % (36.0-46.0); Lymphocytes # (auto) 1.3 10 ^3/uL (0.4-5.4); Lymphocytes % (auto) 15.8 % (10.0-50.0); Mean Corpuscular Hemoglobin 29.7 pg (28.0-32.0); Mean Corpuscular Hgb Conc. 33.1 g/dL (32.0-36.0); Mean Corpuscular Volume 89.9 fL (80.0-100.0); Monocytes # (auto) 0.7 10 ^3/uL (0-1.3); Monocytes % (auto) 8.4 % (0.0-12.0); Neutrophils # (auto) 6.1 10 ^3/uL (1.6-8.6); Neutrophils % (auto) 74.8 % (37.0-80.0); Nucleated Red Blood Cells % 0.1 %; Red Blood Cells 5.37 10^6/uL (4.0-5.20); Red Cell Distribution Width 13.5 % (11.8-14.3); White Blood Cell 8.2 10^3/uL (4.4-10.8)
[2021-05-06 15:55] LABS: Potassium 4.5 mmol/L (3.5-5.1)
[2021-05-06 16:04] LABS: Albumin 3.8 g/dL (3.4-5.0); Bilirubin, Total 0.3 mg/dL (0.2-1.0); Calcium 10.2 mg/dL (8.5-10.1); Total Protein 7.2 g/dL (6.4-8.2)
[2021-05-06] MEDS ORDERED: ONDA-144 PO (18:52)
[2021-05-06 19:52] VITALS: BP 138/71
== END 2021-05-06 19:52 | disposition home or self-care (01) ==
LOC: ER 13:53
DX: R11.2 Nausea with vomiting, unspecified (principal); M19.90 Unspecified osteoarthritis, unspecified site; I10 Essential (primary) hypertension; Z79.899 Other long term (current) drug therapy; Z88.6 Allergy status to analgesic agent
CPT/HCPCS: 36415; 80053; 84484; 85025; 93005

== ENCOUNTER → 2021-05-08 | Outpatient (CLI) | payer OTHER, MEDICARE ==
[~2021-05-08] MED LIST changes: +ONDA-144 PO
== END | disposition home or self-care (01) ==
LOC: LAB 10:21
PROVIDERS: ATTEND Nurse Practitioner Family
DX: R11.2 Nausea with vomiting, unspecified (principal)
CPT/HCPCS: 82270; 87045; 87177; 87427

== ENCOUNTER 2021-05-19 12:52 | Inpatient (IN) | payer OTHER, MEDICARE ==
[~2021-05-19] VITALS: Ht 157.5 cm; Wt 50.6 kg
[2021-05-19 13:44] LABS: Basophils # (auto) 0 10 ^3/uL (0-0.2); Basophils % (auto) 0.3 % (0.0-2.0); Eosinophils # (auto) 0.1 10 ^3/uL (0-0.8); Eosinophils % (auto) 0.8 % (0.0-7.0); Hematocrit 39.8 % (36.0-46.0); Hemoglobin 13.4 g/dL (12.2-16.2); Lymphocytes # (auto) 1.7 10 ^3/uL (0.4-5.4); Lymphocytes % (auto) 19.3 % (10.0-50.0); Mean Corpuscular Hemoglobin 30.6 pg (28.0-32.0); Mean Corpuscular Hgb Conc. 33.8 g/dL (32.0-36.0); Mean Corpuscular Volume 90.6 fL (80.0-100.0); Monocytes # (auto) 1.2 10 ^3/uL (0-1.3); Monocytes % (auto) 13.3 % (0.0-12.0); Neutrophils # (auto) 5.8 10 ^3/uL (1.6-8.6); Neutrophils % (auto) 66.3 % (37.0-80.0); Red Cell Distribution Width 13.4 % (11.8-14.3); White Blood Cell 8.8 10^3/uL (4.4-10.8)
[2021-05-19 14:15] LABS: Calcium 9.4 mg/dL (8.5-10.1); Potassium 4.9 mmol/L (3.5-5.1)
[2021-05-19 14:25] LABS: Bilirubin, Total 0.6 mg/dL (0.2-1.0); CRP High Sensitivity 3.87 mg/dL (< 0.3); Total Protein 6.3 g/dL (6.4-8.2)
[2021-05-19] MEDS ORDERED: NITROGLYCERIN 0.4 MG SL TAB SL PRN (15:45)
[2021-05-19] MEDS ORDERED: ACETAMINOPHEN 325 MG TAB PO PRN (15:45)
[2021-05-19] MEDS ORDERED: MORPHINE SULFATE INJECTION 2 MG/ML SYRG IV PRN (15:45)
[2021-05-19 15:57] LABS: BUN/Creatinine Ratio 21.1
[2021-05-19] MEDS ORDERED: traMADol HCL 50 MG TAB PO PRN (22:30)
[2021-05-20 05:00] VITALS: BP 134/56
[2021-05-20] MEDS: GABAPENTIN 300 MG CAP PO SCH ×3 (05:04→21:26)
[2021-05-20 07:01] LABS: Basophils # (auto) 0 10 ^3/uL (0-0.2); Basophils % (auto) 0.5 % (0.0-2.0); Eosinophils # (auto) 0.2 10 ^3/uL (0-0.8); Eosinophils % (auto) 2.4 % (0.0-7.0); Hematocrit 39.4 % (36.0-46.0); Hemoglobin 13.3 g/dL (12.2-16.2); Lymphocytes # (auto) 1.8 10 ^3/uL (0.4-5.4); Lymphocytes % (auto) 27.1 % (10.0-50.0); Mean Corpuscular Hemoglobin 30.4 pg (28.0-32.0); Mean Corpuscular Hgb Conc. 33.6 g/dL (32.0-36.0); Mean Corpuscular Volume 90.4 fL (80.0-100.0); Monocytes # (auto) 0.9 10 ^3/uL (0-1.3); Monocytes % (auto) 13.9 % (0.0-12.0); Neutrophils # (auto) 3.8 10 ^3/uL (1.6-8.6); Neutrophils % (auto) 56.1 % (37.0-80.0); Nucleated Red Blood Cells % 0.1 %; Red Blood Cells 4.36 10^6/uL (4.0-5.20); Red Cell Distribution Width 12.8 % (11.8-14.3); White Blood Cell 6.7 10^3/uL (4.4-10.8)
[2021-05-20 07:14] LABS: Potassium 4.6 mmol/L (3.5-5.1)
[2021-05-20 07:24] LABS: Albumin 3.1 g/dL (3.4-5.0); Bilirubin, Total 0.6 mg/dL (0.2-1.0); Total Protein 6.4 g/dL (6.4-8.2)
[2021-05-20 09:00] VITALS: BP 134/62
[2021-05-20] MEDS: cefTRIAXone 1GM/50ML D5W 50 ML IV SCH (09:22)
[2021-05-20] MEDS: AZITHROMYCIN 500MG/ 250ML 250 ML IV SCH (10:25)
[2021-05-20] MEDS: ENOXAPARIN SOD 40 MG/0.4 ML SYRINGE SC SCH (10:25)
[2021-05-20] MEDS: PROPRANOLOL HCL 20 MG TAB PO SCH ×2 (10:25→21:25)
[2021-05-20] MEDS ORDERED: guaiFENesin 200 MG/10 ML UD PO PRN (11:30)
[2021-05-20 13:00] VITALS: BP 117/42
[2021-05-20 17:00] VITALS: BP 121/52
[2021-05-20] MEDS: ATORVASTATIN 20 MG TAB PO SCH (21:24)
[2021-05-20 22:00] VITALS: BP 134/50
[2021-05-21 05:00] VITALS: BP 114/48
[2021-05-21] MEDS: GABAPENTIN 300 MG CAP PO SCH ×3 (05:15→21:25)
[2021-05-21] MEDS: cefTRIAXone 1GM/50ML D5W 50 ML IV SCH (08:08)
[2021-05-21 09:00] VITALS: BP 101/51
[2021-05-21] MEDS: AZITHROMYCIN 500MG/ 250ML 250 ML IV SCH (09:47)
[2021-05-21] MEDS: ENOXAPARIN SOD 40 MG/0.4 ML SYRINGE SC SCH (09:48)
[2021-05-21] MEDS: PROPRANOLOL HCL 20 MG TAB PO SCH ×2 (09:48→21:27)
[2021-05-21 13:00] VITALS: BP 101/53
[2021-05-21 16:38] VITALS: BP 101/58
[2021-05-21] MEDS: methylPREDNISolone SOD SUCC 40 MG/ML VL IV SCH ×2 (20:41→21:24)
[2021-05-21 21:00] VITALS: BP 114/58
[2021-05-21] MEDS: ATORVASTATIN 20 MG TAB PO SCH (21:25)
[2021-05-21 22:00] VITALS: BP 114/45
[2021-05-22 05:00] VITALS: BP 101/50
[2021-05-22] MEDS: methylPREDNISolone SOD SUCC 40 MG/ML VL IV SCH ×3 (05:33→22:19)
[2021-05-22] MEDS: GABAPENTIN 300 MG CAP PO SCH ×3 (05:33→22:27)
[2021-05-22] MEDS: IPRATROPIUM BROM 0.5 MG/2.5ML INH SOL NEB SCH ×3 (06:10→22:46)
[2021-05-22] MEDS: ALBUTEROL SULF 2.5 MG/0.5ML(0.5%) NEB SOLN NEB PRN ×3 (06:10→22:46)
[2021-05-22 08:00] VITALS: BP 114/67
[2021-05-22] MEDS: cefTRIAXone 1GM/50ML D5W 50 ML IV SCH (09:00)
[2021-05-22] MEDS: ENOXAPARIN SOD 40 MG/0.4 ML SYRINGE SC SCH (10:00)
[2021-05-22] MEDS: AZITHROMYCIN 500MG/ 250ML 250 ML IV SCH (10:00)
[2021-05-22] MEDS: PROPRANOLOL HCL 20 MG TAB PO SCH ×2 (10:00→22:27)
[2021-05-22 12:00] VITALS: BP 110/61
[2021-05-22 17:00] VITALS: BP 107/53
[2021-05-22 21:33] VITALS: BP 112/52
[2021-05-22] MEDS: ATORVASTATIN 20 MG TAB PO SCH (22:28)
[2021-05-23 05:11] VITALS: BP 125/64
[2021-05-23] MEDS: methylPREDNISolone SOD SUCC 40 MG/ML VL IV SCH (05:32)
[2021-05-23] MEDS: GABAPENTIN 300 MG CAP PO SCH (05:33)
[2021-05-23] MEDS: ALBUTEROL SULF 2.5 MG/0.5ML(0.5%) NEB SOLN NEB PRN ×2 (06:03→11:27)
[2021-05-23] MEDS: IPRATROPIUM BROM 0.5 MG/2.5ML INH SOL NEB SCH ×2 (06:03→11:27)
[2021-05-23 08:00] VITALS: BP 144/53
[2021-05-23 08:20] VITALS: BP 132/61
[2021-05-23] MEDS: PROPRANOLOL HCL 20 MG TAB PO SCH (10:12)
[2021-05-23] MEDS: ENOXAPARIN SOD 40 MG/0.4 ML SYRINGE SC SCH (10:12)
[2021-05-23] MEDS ORDERED: AZIT500T66 PO (11:31)
[2021-05-23] MEDS ORDERED: PRED20TA2 PO (11:31)
[2021-05-23 12:44] VITALS: BP 132/61
[2021-05-23 13:00] VITALS: BP 122/47
== END 2021-05-23 14:25 | disposition home or self-care (01) | DRG 189 ==
LOC: ER 12:57 → TELE 15:43 → TELE-WESTW 05-20 02:40
PROVIDERS: ADMIT Internal Medicine; ATTEND Family Medicine
DX: J96.01 Acute respiratory failure with hypoxia (principal); J44.1 Chronic obstructive pulmonary disease with (acute) exacerbation; R00.1 Bradycardia, unspecified; E78.5 Hyperlipidemia, unspecified; I27.81 Cor pulmonale (chronic); I10 Essential (primary) hypertension; F41.9 Anxiety disorder, unspecified; Z20.822 Contact with and (suspected) exposure to COVID-19; Z79.82 Long term (current) use of aspirin; Z79.899 Other long term (current) drug therapy; Z80.3 Family history of malignant neoplasm of breast; Z82.3 Family history of stroke; Z82.49 Family history of ischemic heart disease and other diseases of the circulatory system; Z85.3 Personal history of malignant neoplasm of breast; Z90.11 Acquired absence of right breast and nipple; Z88.5 Allergy status to narcotic agent
CPT/HCPCS: 36415; 36600; 71045; 71250; 78306; 80053; 82728; 82805; 82962; 83605; 83735; 83880; 84484; 85025; 85379; 86141; 87040; 87081; 87426; 93005; 93306; 94640; G0378; J0696

== ENCOUNTER → 2021-06-26 | Outpatient (CLI) | payer OTHER ==
[~2021-06-26] MED LIST changes: +AZIT500T66 PO; +PRED20TA2 PO
[2021-06-26 11:04] LABS: Basophils # (auto) 0 10 ^3/uL (0-0.2); Basophils % (auto) 0.5 % (0.0-2.0); Eosinophils # (auto) 0.1 10 ^3/uL (0-0.8); Eosinophils % (auto) 1.8 % (0.0-7.0); Hematocrit 40.3 % (36.0-46.0); Hemoglobin 13.1 g/dL (12.2-16.2); Lymphocytes # (auto) 1.8 10 ^3/uL (0.4-5.4); Mean Corpuscular Hemoglobin 30.1 pg (28.0-32.0); Mean Corpuscular Hgb Conc. 32.5 g/dL (32.0-36.0); Mean Corpuscular Volume 92.6 fL (80.0-100.0); Monocytes # (auto) 0.8 10 ^3/uL (0-1.3); Monocytes % (auto) 11.2 % (0.0-12.0); Neutrophils # (auto) 4.7 10 ^3/uL (1.6-8.6); Neutrophils % (auto) 62.5 % (37.0-80.0); Red Blood Cells 4.36 10^6/uL (4.0-5.20); Red Cell Distribution Width 13.7 % (11.8-14.3); White Blood Cell 7.5 10^3/uL (4.4-10.8)
[2021-06-26 12:00] LABS: Albumin 3.6 g/dL (3.4-5.0); Potassium 4.5 mmol/L (3.5-5.1)
[2021-06-26 12:04] LABS: BUN/Creatinine Ratio 31.8; Bilirubin, Total 0.6 mg/dL (0.2-1.0); Total Protein 6.7 g/dL (6.4-8.2)
== END | disposition home or self-care (01) ==
LOC: LAB 09:49
PROVIDERS: ATTEND Internal Medicine
DX: I10 Essential (primary) hypertension (principal); E03.9 Hypothyroidism, unspecified; Z00.01 Encounter for general adult medical examination with abnormal findings; E78.49 Other hyperlipidemia; E04.1 Nontoxic single thyroid nodule; F33.9 Major depressive disorder, recurrent, unspecified
CPT/HCPCS: 36415; 80053; 80061; 82274; 83036; 83615; 85025; 86300

== ENCOUNTER → 2021-09-26 | Outpatient (CLI) | payer MEDICARE, OTHER ==
[2021-09-26 14:48] LABS: Basophils # (auto) 0.2 10 ^3/uL (0-0.2); Basophils % (auto) 2.7 % (0.0-2.0); Eosinophils # (auto) 0.2 10 ^3/uL (0-0.8); Eosinophils % (auto) 3.3 % (0.0-7.0); Hematocrit 48.8 % (36.0-46.0); Hemoglobin 15.8 g/dL (12.2-16.2); Lymphocytes # (auto) 1.8 10 ^3/uL (0.4-5.4); Lymphocytes % (auto) 28.7 % (10.0-50.0); Mean Corpuscular Hemoglobin 29.6 pg (28.0-32.0); Mean Corpuscular Hgb Conc. 32.4 g/dL (32.0-36.0); Mean Corpuscular Volume 91.3 fL (80.0-100.0); Monocytes # (auto) 0.6 10 ^3/uL (0-1.3); Monocytes % (auto) 9.9 % (0.0-12.0); Neutrophils # (auto) 3.4 10 ^3/uL (1.6-8.6); Neutrophils % (auto) 55.4 % (37.0-80.0); Nucleated Red Blood Cells % 0.1 %; Red Blood Cells 5.34 10^6/uL (4.0-5.20); Red Cell Distribution Width 12.4 % (11.8-14.3); White Blood Cell 6.2 10^3/uL (4.4-10.8)
[2021-09-26 15:26] LABS: Albumin 4.1 g/dL (3.4-5.0); Calcium 11.1 mg/dL (8.5-10.1)
[2021-09-26 15:27] LABS: BUN/Creatinine Ratio 31.2
[2021-09-26 15:40] LABS: Bilirubin, Total 0.4 mg/dL (0.2-1.0); Total Protein 7.8 g/dL (6.4-8.2)
== END | disposition home or self-care (01) ==
LOC: LAB 14:28
PROVIDERS: ATTEND Physician Assistant
DX: R97.8 Other abnormal tumor markers (principal); Z85.3 Personal history of malignant neoplasm of breast
CPT/HCPCS: 36415; 80053; 83615; 85025; 86300

== ENCOUNTER → 2022-01-22 | Outpatient (CLI) | payer OTHER ==
[2022-01-22 14:02] LABS: Basophils # (auto) 0 10 ^3/uL (0-0.2); Basophils % (auto) 0.7 % (0.0-2.0); Eosinophils # (auto) 0.2 10 ^3/uL (0-0.8); Eosinophils % (auto) 3.3 % (0.0-7.0); Hematocrit 42.5 % (36.0-46.0); Lymphocytes # (auto) 1.6 10 ^3/uL (0.4-5.4); Lymphocytes % (auto) 25.4 % (10.0-50.0); Mean Corpuscular Hemoglobin 30.3 pg (28.0-32.0); Mean Corpuscular Hgb Conc. 32.9 g/dL (32.0-36.0); Mean Corpuscular Volume 91.9 fL (80.0-100.0); Monocytes # (auto) 0.9 10 ^3/uL (0-1.3); Monocytes % (auto) 13.6 % (0.0-12.0); Neutrophils # (auto) 3.6 10 ^3/uL (1.6-8.6); Nucleated Red Blood Cells % 0.1 %; Red Blood Cells 4.63 10^6/uL (4.0-5.20); Red Cell Distribution Width 12.8 % (11.8-14.3); White Blood Cell 6.4 10^3/uL (4.4-10.8)
[2022-01-22 14:35] LABS: Albumin 3.6 g/dL (3.4-5.0); Calcium 10.2 mg/dL (8.5-10.1); Potassium 4.9 mmol/L (3.5-5.1)
[2022-01-22 14:39] LABS: BUN/Creatinine Ratio 48.6; Bilirubin, Total 0.3 mg/dL (0.2-1.0); Total Protein 7.3 g/dL (6.4-8.2)
== END | disposition home or self-care (01) ==
LOC: LAB 13:33
PROVIDERS: ATTEND Internal Medicine
DX: Z85.3 Personal history of malignant neoplasm of breast (principal); Z88.5 Allergy status to narcotic agent
CPT/HCPCS: 36415; 80053; 82306; 83615; 85025; 86300

== ENCOUNTER → 2022-07-17 | Outpatient (CLI) | payer MEDICARE, OTHER ==
[2022-07-17 12:09] LABS: Basophils # (auto) 0 10 ^3/uL (0-0.2); Basophils % (auto) 0.9 % (0.0-2.0); Eosinophils # (auto) 0.3 10 ^3/uL (0-0.8); Eosinophils % (auto) 6.8 % (0.0-7.0); Hematocrit 43.8 % (36.0-46.0); Hemoglobin 14.3 g/dL (12.2-16.2); Lymphocytes # (auto) 1.6 10 ^3/uL (0.4-5.4); Lymphocytes % (auto) 33.3 % (10.0-50.0); Mean Corpuscular Hemoglobin 29.7 pg (28.0-32.0); Mean Corpuscular Hgb Conc. 32.6 g/dL (32.0-36.0); Mean Corpuscular Volume 90.9 fL (80.0-100.0); Monocytes # (auto) 0.7 10 ^3/uL (0-1.3); Monocytes % (auto) 14.2 % (0.0-12.0); Neutrophils # (auto) 2.1 10 ^3/uL (1.6-8.6); Neutrophils % (auto) 44.8 % (37.0-80.0); Nucleated Red Blood Cells % 0.2 %; Red Blood Cells 4.81 10^6/uL (4.0-5.20); White Blood Cell 4.7 10^3/uL (4.4-10.8)
[2022-07-17 13:50] LABS: Potassium 5.1 mmol/L (3.5-5.1)
[2022-07-17 14:11] LABS: Albumin 3.5 g/dL (3.4-5.0); BUN/Creatinine Ratio 24.7 (10.0-20.0); Bilirubin, Total 0.3 mg/dL (0.2-1.0); Calcium 10.3 mg/dL (8.5-10.1); Magnesium 2.5 mg/dL (1.6-2.6); Total Protein 7.4 g/dL (6.4-8.2)
== END | disposition home or self-care (01) ==
LOC: LAB 11:47
PROVIDERS: ATTEND Internal Medicine
DX: Z85.3 Personal history of malignant neoplasm of breast (principal); Z79.899 Other long term (current) drug therapy
CPT/HCPCS: 36415; 80053; 82306; 83615; 83735; 85025

== ENCOUNTER → 2022-08-02 | Outpatient (CLI) | payer OTHER ==
[2022-08-02 14:45] LABS: Basophils # (auto) 0 10 ^3/uL (0-0.2); Basophils % (auto) 0.6 % (0.0-2.0); Eosinophils # (auto) 0.2 10 ^3/uL (0-0.8); Eosinophils % (auto) 3.7 % (0.0-7.0); Hematocrit 42.9 % (36.0-46.0); Hemoglobin 13.9 g/dL (12.2-16.2); Lymphocytes % (auto) 34.5 % (10.0-50.0); Mean Corpuscular Hemoglobin 29.6 pg (28.0-32.0); Mean Corpuscular Hgb Conc. 32.5 g/dL (32.0-36.0); Mean Corpuscular Volume 91.1 fL (80.0-100.0); Monocytes # (auto) 0.9 10 ^3/uL (0-1.3); Monocytes % (auto) 14.7 % (0.0-12.0); Neutrophils # (auto) 2.7 10 ^3/uL (1.6-8.6); Neutrophils % (auto) 46.5 % (37.0-80.0); Nucleated Red Blood Cells % 0.1 %; Red Blood Cells 4.71 10^6/uL (4.0-5.20); Red Cell Distribution Width 13.3 % (11.8-14.3); White Blood Cell 5.9 10^3/uL (4.4-10.8)
[2022-08-02 15:03] LABS: Albumin 3.7 g/dL (3.4-5.0); Calcium 10.3 mg/dL (8.5-10.1); Potassium 4.8 mmol/L (3.5-5.1)
[2022-08-02 15:07] LABS: Bilirubin, Total 0.3 mg/dL (0.2-1.0); Total Protein 7.1 g/dL (6.4-8.2)
== END | disposition home or self-care (01) ==
LOC: LAB 14:14
PROVIDERS: ATTEND Internal Medicine
DX: Z85.3 Personal history of malignant neoplasm of breast (principal); Z88.8 Allergy status to other drugs, medicaments and biological substances
CPT/HCPCS: 36415; 80053; 83615; 85025; 86300

== ENCOUNTER → 2023-01-21 | Outpatient (CLI) | payer OTHER ==
[~2023-01-21] MED LIST changes: -ESCI-34 PO; +ESCI1TAB37 PO; +GABA-1250 PO; -GABA300C10 PO; +PROP1TAB53 PO; -PROP20TA73 PO
[2023-01-21 13:09] LABS: Basophils # (auto) 0 10 ^3/uL (0-0.2); Basophils % (auto) 0.9 % (0.0-2.0); Eosinophils # (auto) 0.3 10 ^3/uL (0-0.8); Eosinophils % (auto) 4.5 % (0.0-7.0); Hematocrit 44.3 % (36.0-46.0); Hemoglobin 14.8 g/dL (12.2-16.2); Lymphocytes # (auto) 1.8 10 ^3/uL (0.4-5.4); Mean Corpuscular Hemoglobin 30.9 pg (28.0-32.0); Mean Corpuscular Hgb Conc. 33.5 g/dL (32.0-36.0); Mean Corpuscular Volume 92.4 fL (80.0-100.0); Monocytes # (auto) 0.7 10 ^3/uL (0-1.3); Monocytes % (auto) 12.1 % (0.0-12.0); Neutrophils # (auto) 2.8 10 ^3/uL (1.6-8.6); Neutrophils % (auto) 50.5 % (37.0-80.0); Nucleated Red Blood Cells % 0.2 %; Red Blood Cells 4.79 10^6/uL (4.0-5.20); Red Cell Distribution Width 13.7 % (11.8-14.3); White Blood Cell 5.6 10^3/uL (4.4-10.8)
[2023-01-21 13:17] LABS: Albumin 4.7 g/dL (3.2-4.8); Alkaline Phosphatase 68 U/L (46-116); Anion Gap 5 (5-15); Aspartate Aminotransferase 9 U/L (13-40); BUN/Creatinine Ratio 24.5 (10.0-20.0); Blood Urea Nitrogen 23 mg/dL (9-23); Carbon Dioxide 31 mmol/L (20-30); Chloride 100 mmol/L (98-107); Glucose 98 mg/dL (74-106); Potassium 4.9 mmol/L (3.5-5.1); Sodium 136 mmol/L (136-145)
[2023-01-21 13:18] LABS: Bilirubin, Total 0.5 mg/dL (0.2-1.0); Total Protein 7.3 g/dL (5.7-8.2)
[2023-01-21 13:32] LABS: Alanine Aminotransferase < 9 U/L (7-40)
== END | disposition home or self-care (01) ==
LOC: LAB 12:13
PROVIDERS: ATTEND Internal Medicine
DX: Z85.3 Personal history of malignant neoplasm of breast (principal); Z88.8 Allergy status to other drugs, medicaments and biological substances
CPT/HCPCS: 36415; 80053; 82306; 82728; 83540; 83615; 83735; 85025

== ENCOUNTER → 2023-01-25 | Outpatient (CLI) | payer OTHER ==
[2023-01-25 12:59] LABS: Basophils # (auto) 0.1 10 ^3/uL (0-0.2); Basophils % (auto) 0.8 % (0.0-2.0); Eosinophils # (auto) 0.3 10 ^3/uL (0-0.8); Eosinophils % (auto) 4.2 % (0.0-7.0); Hematocrit 45.5 % (36.0-46.0); Lymphocytes # (auto) 1.9 10 ^3/uL (0.4-5.4); Lymphocytes % (auto) 28.9 % (10.0-50.0); Mean Corpuscular Hemoglobin 30.6 pg (28.0-32.0); Mean Corpuscular Volume 92.8 fL (80.0-100.0); Monocytes # (auto) 0.8 10 ^3/uL (0-1.3); Monocytes % (auto) 11.7 % (0.0-12.0); Neutrophils # (auto) 3.6 10 ^3/uL (1.6-8.6); Neutrophils % (auto) 54.4 % (37.0-80.0); Nucleated Red Blood Cells % 0.1 %; Red Cell Distribution Width 13.7 % (11.8-14.3); White Blood Cell 6.6 10^3/uL (4.4-10.8)
[2023-01-25 14:00] LABS: Alanine Aminotransferase 10 U/L (7-40); Alkaline Phosphatase 68 U/L (46-116); Anion Gap 6 (5-15); Aspartate Aminotransferase 9 U/L (13-40); BUN/Creatinine Ratio 19.6 (10.0-20.0); Blood Urea Nitrogen 19 mg/dL (9-23); Carbon Dioxide 29 mmol/L (20-30); Chloride 100 mmol/L (98-107); Glucose 102 mg/dL (74-106); Sodium 135 mmol/L (136-145)
[2023-01-25 14:01] LABS: Albumin 4.7 g/dL (3.2-4.8); Bilirubin, Total 0.4 mg/dL (0.2-1.0); Total Protein 7.4 g/dL (5.7-8.2)
== END | disposition home or self-care (01) ==
LOC: LAB 12:38
PROVIDERS: ATTEND Physician Assistant
DX: Z85.3 Personal history of malignant neoplasm of breast (principal); Z88.8 Allergy status to other drugs, medicaments and biological substances
CPT/HCPCS: 36415; 80053; 83615; 85025; 86300

== ENCOUNTER → 2023-07-29 | Outpatient (CLI) | payer OTHER ==
[2023-07-29 13:40] LABS: Basophils # (auto) 0 10 ^3/uL (0-0.2); Basophils % (auto) 0.5 % (0.0-2.0); Eosinophils # (auto) 0.1 10 ^3/uL (0-0.8); Hematocrit 44.8 % (36.0-46.0); Hemoglobin 14.9 g/dL (12.2-16.2); Lymphocytes % (auto) 24.4 % (10.0-50.0); Mean Corpuscular Hemoglobin 30.2 pg (28.0-32.0); Mean Corpuscular Hgb Conc. 33.2 g/dL (32.0-36.0); Monocytes # (auto) 0.8 10 ^3/uL (0-1.3); Monocytes % (auto) 10.2 % (0.0-12.0); Neutrophils # (auto) 5.2 10 ^3/uL (1.6-8.6); Neutrophils % (auto) 63.9 % (37.0-80.0); Nucleated Red Blood Cells % 0.1 %; Red Blood Cells 4.92 10^6/uL (4.0-5.20); White Blood Cell 8.1 10^3/uL (4.4-10.8)
[2023-07-29 14:13] LABS: Alanine Aminotransferase 11 U/L (7-40); Albumin 4.6 g/dL (3.2-4.8); Alkaline Phosphatase 67 U/L (46-116); Anion Gap 10 (5-15); Aspartate Aminotransferase 20 U/L (13-40); BUN/Creatinine Ratio 24.2 (10.0-20.0); Blood Urea Nitrogen 22 mg/dL (9-23); Calcium 11.1 mg/dL (8.5-10.1); Carbon Dioxide 25 mmol/L (20-30); Chloride 104 mmol/L (98-107); Glucose 112 mg/dL (74-106); Potassium 4.6 mmol/L (3.5-5.1); Sodium 139 mmol/L (136-145)
[2023-07-29 14:14] LABS: Bilirubin, Total 0.4 mg/dL (0.2-1.0); Total Protein 7.3 g/dL (5.7-8.2)
== END | disposition home or self-care (01) ==
LOC: LAB 13:11
PROVIDERS: ATTEND Internal Medicine
DX: M81.0 Age-related osteoporosis without current pathological fracture (principal); Z85.3 Personal history of malignant neoplasm of breast; Z88.8 Allergy status to other drugs, medicaments and biological substances
CPT/HCPCS: 36415; 80053; 83615; 85025; 86300

== ENCOUNTER → 2023-08-20 | Outpatient (CLI) | payer OTHER ==
[2023-08-20 08:25] LABS: Basophils # (auto) 0.1 10 ^3/uL (0-0.2); Eosinophils # (auto) 0.2 10 ^3/uL (0-0.8); Eosinophils % (auto) 2.2 % (0.0-7.0); Hematocrit 46.1 % (36.0-46.0); Lymphocytes % (auto) 23.4 % (10.0-50.0); Mean Corpuscular Hemoglobin 29.4 pg (28.0-32.0); Mean Corpuscular Hgb Conc. 32.5 g/dL (32.0-36.0); Mean Corpuscular Volume 90.6 fL (80.0-100.0); Monocytes # (auto) 0.6 10 ^3/uL (0-1.3); Monocytes % (auto) 7.2 % (0.0-12.0); Neutrophils # (auto) 5.5 10 ^3/uL (1.6-8.6); Neutrophils % (auto) 66.2 % (37.0-80.0); Nucleated Red Blood Cells % 0.3 %; Red Blood Cells 5.08 10^6/uL (4.0-5.20); Red Cell Distribution Width 12.9 % (11.8-14.3); White Blood Cell 8.4 10^3/uL (4.4-10.8)
[2023-08-20 09:02] LABS: Alanine Aminotransferase 10 U/L (7-40); Albumin 4.4 g/dL (3.2-4.8); Alkaline Phosphatase 77 U/L (46-116); Anion Gap 11 (5-15); Aspartate Aminotransferase 20 U/L (13-40); Bilirubin, Total 0.5 mg/dL (0.2-1.0); Blood Urea Nitrogen 19 mg/dL (9-23); Calcium 10.9 mg/dL (8.5-10.1); Carbon Dioxide 26 mmol/L (20-30); Chloride 103 mmol/L (98-107); Cholesterol 194 mg/dL (< 200); Glucose 75 mg/dL (74-106); HDL Cholesterol 45 mg/dL (40-59); LDL Cholesterol 126 mg/dL (< 100); Potassium 4.9 mmol/L (3.5-5.1); Sodium 140 mmol/L (136-145); Triglycerides 117 mg/dL (< 150)
[2023-08-20 09:03] LABS: Total Protein 7.6 g/dL (5.7-8.2)
== END | disposition home or self-care (01) ==
LOC: LAB 08:04
PROVIDERS: ATTEND Student in an Organized Health Care Education/Training Program
DX: Z12.11 Encounter for screening for malignant neoplasm of colon (principal); E78.49 Other hyperlipidemia; R42 Dizziness and giddiness
CPT/HCPCS: 36415; 80053; 80061; 85025

== ENCOUNTER → 2023-08-26 | Outpatient (CLI) | payer OTHER | END | disposition home or self-care (01) | LOC: LAB 08:05 | PROVIDERS: ATTEND Student in an Organized Health Care Education/Training Program | DX: Z12.11 Encounter for screening for malignant neoplasm of colon (principal); E78.49 Other hyperlipidemia; R42 Dizziness and giddiness | CPT/HCPCS: 82274 ==

== ENCOUNTER → 2024-01-13 | Outpatient (CLI) | payer OTHER ==
[2024-01-13 13:09] LABS: Basophils # (auto) 0 10 ^3/uL (0-0.2); Basophils % (auto) 0.7 % (0.0-2.0); Eosinophils # (auto) 0 10 ^3/uL (0-0.8); Eosinophils % (auto) 0.7 % (0.0-7.0); Hematocrit 42.5 % (36.0-46.0); Hemoglobin 13.8 g/dL (12.2-16.2); Lymphocytes # (auto) 1.1 10 ^3/uL (0.4-5.4); Lymphocytes % (auto) 18.2 % (10.0-50.0); Mean Corpuscular Hemoglobin 29.6 pg (28.0-32.0); Mean Corpuscular Hgb Conc. 32.5 g/dL (32.0-36.0); Mean Corpuscular Volume 90.9 fL (80.0-100.0); Monocytes # (auto) 0.6 10 ^3/uL (0-1.3); Monocytes % (auto) 10.3 % (0.0-12.0); Neutrophils # (auto) 4.3 10 ^3/uL (1.6-8.6); Neutrophils % (auto) 70.1 % (37.0-80.0); Nucleated Red Blood Cells % 0.1 %; Platelet Count (auto) 288 10^3/uL (140-450); Red Blood Cells 4.68 10^6/uL (4.0-5.20); Red Cell Distribution Width 13.7 % (11.8-14.3); White Blood Cell 6.2 10^3/uL (4.4-10.8)
[2024-01-13 13:28] LABS: Alanine Aminotransferase 11 U/L (7-40); Albumin 4.6 g/dL (3.2-4.8); Alkaline Phosphatase 85 U/L (46-116); Anion Gap 8 (5-15); Aspartate Aminotransferase 16 U/L (13-40); BUN/Creatinine Ratio 17.5 (10.0-20.0); Blood Urea Nitrogen 17 mg/dL (9-23); Calcium 11.2 mg/dL (8.7-10.4); Carbon Dioxide 27 mmol/L (20-31); Chloride 107 mmol/L (98-107); Glucose 124 mg/dL (74-106); Potassium 4.5 mmol/L (3.5-5.1); Sodium 142 mmol/L (136-145)
[2024-01-13 13:29] LABS: Bilirubin, Total 0.7 mg/dL (0.2-1.0); Total Protein 7.3 g/dL (5.7-8.2)
== END | disposition home or self-care (01) ==
LOC: LAB 12:52
PROVIDERS: ATTEND Internal Medicine
DX: M81.0 Age-related osteoporosis without current pathological fracture (principal); Z85.3 Personal history of malignant neoplasm of breast
CPT/HCPCS: 36415; 80053; 85025

== ENCOUNTER → 2024-01-28 | Outpatient (CLI) | payer OTHER ==
[2024-01-28 15:17] LABS: Basophils # (auto) 0 10 ^3/uL (0-0.2); Basophils % (auto) 0.7 % (0.0-2.0); Eosinophils # (auto) 0.1 10 ^3/uL (0-0.8); Eosinophils % (auto) 2.6 % (0.0-7.0); Hematocrit 40.7 % (36.0-46.0); Hemoglobin 13.6 g/dL (12.2-16.2); Lymphocytes # (auto) 1.5 10 ^3/uL (0.4-5.4); Lymphocytes % (auto) 26.9 % (10.0-50.0); Mean Corpuscular Hemoglobin 30.1 pg (28.0-32.0); Mean Corpuscular Hgb Conc. 33.4 g/dL (32.0-36.0); Mean Corpuscular Volume 90.2 fL (80.0-100.0); Monocytes # (auto) 0.7 10 ^3/uL (0-1.3); Neutrophils # (auto) 3.1 10 ^3/uL (1.6-8.6); Neutrophils % (auto) 57.8 % (37.0-80.0); Platelet Count (auto) 348 10^3/uL (140-450); Red Blood Cells 4.51 10^6/uL (4.0-5.20); Red Cell Distribution Width 13.9 % (11.8-14.3); White Blood Cell 5.4 10^3/uL (4.4-10.8)
[2024-01-28 15:36] LABS: Alanine Aminotransferase 12 U/L (7-40); Albumin 4.3 g/dL (3.2-4.8); Alkaline Phosphatase 102 U/L (46-116); Anion Gap 6 (5-15); Aspartate Aminotransferase 15 U/L (13-40); Bilirubin, Total 0.4 mg/dL (0.2-1.0); Blood Urea Nitrogen 23 mg/dL (9-23); Calcium 11.2 mg/dL (8.7-10.4); Carbon Dioxide 26 mmol/L (20-31); Chloride 106 mmol/L (98-107); Glucose 81 mg/dL (74-106); Potassium 4.8 mmol/L (3.5-5.1); Sodium 138 mmol/L (136-145); Total Protein 7.1 g/dL (5.7-8.2)
== END | disposition home or self-care (01) ==
LOC: LAB 14:23
PROVIDERS: ATTEND Internal Medicine
DX: M81.0 Age-related osteoporosis without current pathological fracture (principal); Z85.3 Personal history of malignant neoplasm of breast
CPT/HCPCS: 36415; 80053; 83615; 85025; 86300

== ENCOUNTER → 2024-04-21 | Outpatient (CLI) | payer OTHER, MEDICARE ==
[2024-04-21 15:04] LABS: Basophils # (auto) 0 10 ^3/uL (0-0.2); Basophils % (auto) 0.7 % (0.0-2.0); Eosinophils # (auto) 0.2 10 ^3/uL (0-0.8); Eosinophils % (auto) 3.2 % (0.0-7.0); Hematocrit 40.9 % (36.0-46.0); Hemoglobin 13.4 g/dL (12.2-16.2); Lymphocytes # (auto) 1.5 10 ^3/uL (0.4-5.4); Lymphocytes % (auto) 24.2 % (10.0-50.0); Mean Corpuscular Hemoglobin 28.6 pg (28.0-32.0); Mean Corpuscular Hgb Conc. 32.7 g/dL (32.0-36.0); Mean Corpuscular Volume 87.5 fL (80.0-100.0); Monocytes # (auto) 0.6 10 ^3/uL (0-1.3); Monocytes % (auto) 9.9 % (0.0-12.0); Neutrophils # (auto) 3.8 10 ^3/uL (1.6-8.6); Nucleated Red Blood Cells % 0.1 %; Platelet Count (auto) 355 10^3/uL (140-450); Red Blood Cells 4.68 10^6/uL (4.0-5.20); Red Cell Distribution Width 14.9 % (11.8-14.3); White Blood Cell 6.2 10^3/uL (4.4-10.8)
[2024-04-21 15:36] LABS: Alanine Aminotransferase 10 U/L (7-40); Alkaline Phosphatase 93 U/L (46-116); Anion Gap 4 (5-15); BUN/Creatinine Ratio 31.1 (10.0-20.0); Carbon Dioxide 31 mmol/L (20-31); Chloride 105 mmol/L (98-107); Glucose 100 mg/dL (74-106); Potassium 4.5 mmol/L (3.5-5.1); Sodium 140 mmol/L (136-145)
[2024-04-21 15:37] LABS: Albumin 4.1 g/dL (3.2-4.8); Total Protein 7.5 g/dL (5.7-8.2)
[2024-04-21 15:41] LABS: Thyroid Stimulating Hormone 1.91 uIU/mL (0.55-4.78)
[2024-04-21 15:45] LABS: Aspartate Aminotransferase 12 U/L (13-40); Bilirubin, Total 0.2 mg/dL (0.2-1.0); Blood Urea Nitrogen 23 mg/dL (9-23); Calcium 11.2 mg/dL (8.7-10.4)
[2024-04-22 08:06] LABS: CA 27.29 45.2 U/mL (0.0-38.6); Thyroxine (T4) 7.4 ug/dL (4.5-12.0)
== END | disposition home or self-care (01) ==
LOC: LAB 14:42
PROVIDERS: ATTEND Internal Medicine
DX: M81.0 Age-related osteoporosis without current pathological fracture (principal); Z85.3 Personal history of malignant neoplasm of breast; Z79.899 Other long term (current) drug therapy
CPT/HCPCS: 36415; 80053; 82306; 83615; 83970; 84436; 84443; 85025; 86300

== ENCOUNTER → 2024-06-22 | Outpatient (CLI) | payer OTHER, MEDICARE ==
[2024-06-22 15:49] LABS: Basophils # (auto) 0 10 ^3/uL (0-0.2); Basophils % (auto) 0.8 % (0.0-2.0); Eosinophils # (auto) 0.1 10 ^3/uL (0-0.8); Eosinophils % (auto) 2.4 % (0.0-7.0); Hemoglobin 13.6 g/dL (12.2-16.2); Lymphocytes # (auto) 1.4 10 ^3/uL (0.4-5.4); Lymphocytes % (auto) 35.5 % (10.0-50.0); Mean Corpuscular Hemoglobin 29.4 pg (28.0-32.0); Mean Corpuscular Hgb Conc. 33.2 g/dL (32.0-36.0); Mean Corpuscular Volume 88.7 fL (80.0-100.0); Monocytes # (auto) 0.5 10 ^3/uL (0-1.3); Monocytes % (auto) 12.5 % (0.0-12.0); Neutrophils # (auto) 1.9 10 ^3/uL (1.6-8.6); Neutrophils % (auto) 48.8 % (37.0-80.0); Nucleated Red Blood Cells % 0.1 %; Platelet Count (auto) 285 10^3/uL (140-450); Red Blood Cells 4.62 10^6/uL (4.0-5.20); White Blood Cell 3.8 10^3/uL (4.4-10.8)
[2024-06-22 16:09] LABS: INR 1.02 (0.9-1.15); Partial Thromboplastin Time 32.6 SEC (24.5-34.5); Prothrombin Time 10.8 sec (9.3-11.8)
== END | disposition home or self-care (01) ==
LOC: LAB 15:33
PROVIDERS: ATTEND Internal Medicine
DX: M81.0 Age-related osteoporosis without current pathological fracture (principal); E07.89 Other specified disorders of thyroid; E83.52 Hypercalcemia; Z85.3 Personal history of malignant neoplasm of breast
CPT/HCPCS: 36415; 85025; 85610; 85730

== ENCOUNTER → 2024-07-22 | Outpatient (CLI) | payer MEDICARE, OTHER ==
[2024-07-22 15:49] LABS: Basophils # (auto) 0 10 ^3/uL (0-0.2); Basophils % (auto) 0.7 % (0.0-2.0); Eosinophils # (auto) 0.1 10 ^3/uL (0-0.8); Eosinophils % (auto) 1.5 % (0.0-7.0); Hematocrit 44.3 % (36.0-46.0); Hemoglobin 14.2 g/dL (12.2-16.2); Lymphocytes # (auto) 1.7 10 ^3/uL (0.4-5.4); Lymphocytes % (auto) 32.1 % (10.0-50.0); Mean Corpuscular Hemoglobin 28.6 pg (28.0-32.0); Mean Corpuscular Volume 89.4 fL (80.0-100.0); Monocytes # (auto) 0.6 10 ^3/uL (0-1.3); Monocytes % (auto) 12.3 % (0.0-12.0); Neutrophils # (auto) 2.8 10 ^3/uL (1.6-8.6); Neutrophils % (auto) 53.4 % (37.0-80.0); Nucleated Red Blood Cells % 0.1 %; Platelet Count (auto) 251 10^3/uL (140-450); Red Blood Cells 4.95 10^6/uL (4.0-5.20); Red Cell Distribution Width 13.8 % (11.8-14.3); White Blood Cell 5.2 10^3/uL (4.4-10.8)
[2024-07-22 16:05] LABS: Alanine Aminotransferase 12 U/L (7-40); Alkaline Phosphatase 85 U/L (46-116); Anion Gap 8 (5-15); Aspartate Aminotransferase 17 U/L (13-40); BUN/Creatinine Ratio 27.5 (10.0-20.0); Carbon Dioxide 27 mmol/L (20-31); Chloride 105 mmol/L (98-107); Glucose 94 mg/dL (74-106); Potassium 4.3 mmol/L (3.5-5.1); Sodium 140 mmol/L (136-145); Total Protein 7.4 g/dL (5.7-8.2)
[2024-07-22 16:06] LABS: Albumin 4.6 g/dL (3.2-4.8); Bilirubin, Total 0.3 mg/dL (0.2-1.0)
[2024-07-22 16:08] LABS: Blood Urea Nitrogen 25 mg/dL (9-23); Calcium 11.5 mg/dL (8.7-10.4)
== END | disposition home or self-care (01) ==
LOC: LAB 15:28
PROVIDERS: ATTEND Internal Medicine
DX: M81.0 Age-related osteoporosis without current pathological fracture (principal); Z85.3 Personal history of malignant neoplasm of breast; Z88.5 Allergy status to narcotic agent
CPT/HCPCS: 36415; 80053; 83615; 85025; 86300

== ENCOUNTER 2024-10-13 08:11 | Outpatient (CLI) | payer OTHER ==
[2024-10-13 08:56] LABS: Hematocrit 45.3 % (36.0-46.0); Hemoglobin 14.8 g/dL (12.2-16.2); Mean Corpuscular Hemoglobin 29.2 pg (28.0-32.0); Mean Corpuscular Volume 89.5 fL (80.0-100.0); Nucleated Red Blood Cells % 0.0 %
[2024-10-13 08:59] LABS: Urine Protein, UAD Negative (Negative)
[2024-10-13 09:18] LABS: Alanine Aminotransferase 11 U/L (7-40); Albumin 4.6 g/dL (3.2-4.8); Alkaline Phosphatase 70 U/L (46-116); Anion Gap 7 (5-15); BUN/Creatinine Ratio 25.0 (10.0-20.0); Blood Urea Nitrogen 21 mg/dL (9-23); Carbon Dioxide 25 mmol/L (20-31); Chloride 107 mmol/L (98-107); Glucose 85 mg/dL (74-106); Potassium 4.8 mmol/L (3.5-5.1); Sodium 139 mmol/L (136-145); Total Protein 7.2 g/dL (5.7-8.2); Triglycerides 69 mg/dL (< 150)
[2024-10-13 09:19] LABS: Bilirubin, Total 0.5 mg/dL (0.2-1.0)
[2024-10-13 09:20] LABS: Calcium 10.9 mg/dL (8.7-10.4); Cholesterol 214 mg/dL (< 200); HDL Cholesterol 97 mg/dL (40-59)
== END 2024-10-13 19:22 | disposition home or self-care (01) ==
LOC: LAB 08:11
PROVIDERS: ATTEND Nurse Practitioner
DX: I10 Essential (primary) hypertension (principal); E78.5 Hyperlipidemia, unspecified; E03.9 Hypothyroidism, unspecified
CPT/HCPCS: 36415; 80053; 80061; 81001; 84443; 85025

== ENCOUNTER 2024-11-16 14:17 | Outpatient (CLI) | payer OTHER ==
[2024-11-16 14:52] LABS: Hematocrit 43.9 % (36.0-46.0); Hemoglobin 14.8 g/dL (12.2-16.2); Mean Corpuscular Hemoglobin 30.3 pg (28.0-32.0); Mean Corpuscular Volume 90.1 fL (80.0-100.0); Nucleated Red Blood Cells % 0.1 %
[2024-11-16 15:20] LABS: Alanine Aminotransferase 10 U/L (7-40); Albumin 4.7 g/dL (3.2-4.8); Alkaline Phosphatase 68 U/L (46-116); Anion Gap 9 (5-15); BUN/Creatinine Ratio 20.0 (10.0-20.0); Bilirubin, Total 0.4 mg/dL (0.2-1.0); Blood Urea Nitrogen 18 mg/dL (9-23); Calcium 10.1 mg/dL (8.7-10.4); Carbon Dioxide 26 mmol/L (20-31); Chloride 105 mmol/L (98-107); Potassium 4.4 mmol/L (3.5-5.1); Sodium 140 mmol/L (136-145); Total Protein 7.1 g/dL (5.7-8.2)
[2024-11-16 15:22] LABS: Glucose 108 mg/dL (74-106)
== END 2024-11-16 17:00 | disposition home or self-care (01) ==
LOC: LAB 14:17
PROVIDERS: ATTEND Physician Assistant
DX: E83.52 Hypercalcemia (principal); M81.0 Age-related osteoporosis without current pathological fracture; Z85.3 Personal history of malignant neoplasm of breast
CPT/HCPCS: 36415; 80053; 83615; 85025; 86300